=== PATIENT | male | born 1950 | race Caucasian/White ===

== ENCOUNTER → 2017-10-30 14:32 | Outpatient (CLI) | payer MEDICARE, OTHER, SELFPAY | PROVIDERS: Family Provider Internal Medicine; PCP Internal Medicine; Visit Provider Internal Medicine | DX: R19.7 Diarrhea, unspecified (principal); Z53.9 Procedure and treatment not carried out, unspecified reason ==

== ENCOUNTER → 2018-03-27 07:53 | Outpatient (CLI) | payer MEDICARE, SELFPAY | PROVIDERS: Family Provider Internal Medicine; PCP Internal Medicine; Visit Provider Internal Medicine | DX: Z53.8 Procedure and treatment not carried out for other reasons (principal) ==

== ENCOUNTER → 2018-03-27 10:20 | Outpatient (CLI) | payer MEDICARE, SELFPAY ==
[2018-03-27 12:07] LABS: Add Manual Diff / Slide Review NO; Basophils Percent Auto 0.7 % (0-2); Eosinophils Percent Auto 0.7 % (2-4); Hematocrit 39.4 % (41-53); Hemoglobin 13.4 g/dL (13.5-17.5); Lymphocytes Percent Auto 22.6 % (25-40); Mean Corpuscular HGB Conc 34.1 % (30-36); Mean Corpuscular Hemoglobin 29.7 PG (26-34); Mean Corpuscular Volume 87.1 fL (80-100); Monocytes Percent Auto 9.3 % (3-14); Neutrophils Absolute Auto 3300 /uL (3000-5900); Neutrophils Percent Auto 66.7 % (50-75); Platelet Count 204 X10^3/uL (150-400); Red Blood Cell Count 4.52 X10^6/uL (4.5-5.9); Red Cell Distribution Width 13.5 % (11.6-14.8); White Blood Cell Count 4.9 X10^3/uL (4.5-11.0)
[2018-03-27 12:21] LABS: Alanine Aminotransferase 52 IU/L (21-72); Albumin 4.6 g/dL (3.5-5.0); Albumin Globulin Ratio 1.5 (1.0-2.8); Alkaline Phosphatase 42 U/L (38-126); Amylase 62 U/L (30-110); Aspartate Aminotransferase 38 IU/L (17-59); Bilirubin Total 0.7 mg/dL (0.2-1.3); Blood Urea Nitrogen 18 mg/dL (9-20); Calcium 9.3 mg/dL (8.4-10.2); Carbon Dioxide 31 mmol/L (22-32); Chloride 98 mmol/L (98-107); Estimated Glomerular Filt Rate > 60.0 mL/min (>60); Globulin 3.1 g/dL (1.7-4.1); Glucose 152 mg/dL (80-110); HEMOLYSIS 22 (0-50); Lipase 395 U/L (23-300); Potassium 3.8 mmol/L (3.4-5.1); Sodium 140 mmol/L (137-145); Total Protein 7.7 g/dL (6.3-8.2)
[2018-03-27 14:25] LABS: Adenovirus F 40/41 Not Detected (Not Detect); Astrovirus Not Detected (Not Detect); Campylobacter Not Detected (Not Detect); Clostridium difficile toxin AB Not Detected (Not Detect); Cryptosporidium Not Detected (Not Detect); Cyclospora cayetanensis Not Detected (Not Detect); Entamoeba histolytica Not Detected (Not Detect); Enteroaggregative E.coli Not Detected (Not Detect); Enteropathogenic E.coli Not Detected (Not Detect); Enterotoxigenic E.coli It/st Not Detected (Not Detect); Giardia lamblia Not Detected (Not Detect); Norovirus GI/GII Not Detected (Not Detect); Plesiomonsa shigelloides Not Detected (Not Detect); Rotavirus A Not Detected (Not Detect); Salmonella Not Detected (Not Detect); Sapovirus Not Detected (Not Detect); Shiga-like toxin-prod E.coli Not Detected (Not Detect); Shigella/Enteroinvasive E.coli Not Detected (Not Detect); Vibrio Not Detected (Not Detect); Vibrio cholerae Not Detected (Not Detect); Yersinia enterocolitica Not Detected (Not Detect)
== END ==
PROVIDERS: PCP Internal Medicine; Visit Provider Internal Medicine
DX: R19.7 Diarrhea, unspecified (principal)
CPT/HCPCS: 36415; 80053; 82150; 83690; 85025; 87507

== ENCOUNTER → 2018-09-12 09:15 | Outpatient (CLI) | payer MEDICARE, SELFPAY ==
[2018-09-12 10:22] LABS: Alanine Aminotransferase 53 IU/L (21-72); Albumin 4.2 g/dL (3.5-5.0); Albumin Globulin Ratio 1.5 (1.0-2.8); Alkaline Phosphatase 44 U/L (38-126); Aspartate Aminotransferase 20 IU/L (17-59); BUN Creatinine Ratio 21.3 (6-22); Bilirubin Total 0.3 mg/dL (0.2-1.3); Blood Urea Nitrogen 17 mg/dL (9-20); Calcium 9.1 mg/dL (8.4-10.2); Carbon Dioxide 29 mmol/L (22-32); Chloride 101 mmol/L (98-107); Cholesterol 165 mg/dL (140-199); Estimated Glomerular Filt Rate > 60.0 mL/min (>60); Globulin 2.8 g/dL (1.7-4.1); Glucose 97 mg/dL (80-110); HDL Cholesterol 30 mg/dL (40-60); HEMOLYSIS < 15 (0-50); LDL Cholesterol Calculated 110 mg/dL (<100); Potassium 3.8 mmol/L (3.4-5.1); Sodium 139 mmol/L (137-145); Triglycerides 127 mg/dL (35-150)
[2018-09-12 10:42] LABS: Hemoglobin A1C% w Est Avg Glu 6.3 % (4.0-6.0)
[2018-09-12 10:52] LABS: Prostate Specific Antigen Scrn 0.279 ng/mL (0.1-4.0)
== END ==
PROVIDERS: PCP Internal Medicine; Visit Provider Internal Medicine
DX: I10 Essential (primary) hypertension (principal); E11.9 Type 2 diabetes mellitus without complications; E78.2 Mixed hyperlipidemia; K52.832 Lymphocytic colitis; Z12.5 Encounter for screening for malignant neoplasm of prostate
CPT/HCPCS: 36415; 80053; 80061; 83036; G0103

== ENCOUNTER → 2019-04-01 07:55 | Outpatient (CLI) | payer MEDICARE, SELFPAY ==
[2019-04-01 09:17] LABS: Add Manual Diff / Slide Review NO; Basophils Absolute Auto 0 /uL (0-100); Eosinophils Absolute Auto 100 /uL (0-450); Eosinophils Percent Auto 1.8 % (2-4); Hematocrit 41.5 % (41-53); Lymphocytes Absolute Auto 1200 /uL (1100-4500); Lymphocytes Percent Auto 30.3 % (25-40); Mean Corpuscular HGB Conc 33.8 % (30-36); Mean Corpuscular Hemoglobin 30.3 PG (26-34); Mean Corpuscular Volume 89.6 fL (80-100); Monocytes Absolute Auto 400 /uL (0-900); Monocytes Percent Auto 10.3 % (3-14); Neutrophils Absolute Auto 2200 /uL (1500-7000); Neutrophils Percent Auto 56.6 % (50-75); Platelet Count 181 X10^3/uL (150-400); Red Blood Cell Count 4.63 X10^6/uL (4.5-5.9); Red Cell Distribution Width 13.4 % (11.6-14.8); White Blood Cell Count 3.8 X10^3/uL (4.5-11.0)
[2019-04-01 12:21] LABS: Hemoglobin A1C% w Est Avg Glu 5.9 % (4.0-6.0)
[2019-04-01 14:49] LABS: BUN Creatinine Ratio 22.5 (6-22); Blood Urea Nitrogen 18 mg/dL (9-20); Calcium 9.5 mg/dL (8.4-10.2); Carbon Dioxide 30 mmol/L (22-32); Chloride 98 mmol/L (98-107); Estimated Glomerular Filt Rate > 60.0 mL/min (>60); Glucose 117 mg/dL (80-110); HEMOLYSIS < 15 (0-50); Potassium 4.3 mmol/L (3.4-5.1); Sodium 140 mmol/L (137-145)
== END ==
PROVIDERS: PCP Internal Medicine; Visit Provider Internal Medicine Cardiovascular Disease
DX: I48.0 Paroxysmal atrial fibrillation (principal)
CPT/HCPCS: 36415; 80048; 83036; 85025

== ENCOUNTER → 2019-05-08 11:07 | Outpatient (CLI) | payer MEDICARE, SELFPAY ==
--- NOTE | 2019-05-08 11:10 | DI.RAD.S_ITS ---
PROCEDURE: XR CERVICAL SPINE 4V OR 5V INDICATIONS: Chronic progressive neck pain upper extremity paresthesias TECHNIQUE: 5 views of the cervical spine acquired. COMPARISON: None. FINDINGS: Bones: No fractures or dislocations to the C7 level. There is bilateral osseous neural foraminal narrowing at C6-C7. Multilevel anterior osteophyte formation identified throughout the cervical spine. A prominent posterior disc osteophyte complex is noted at C6-C7. Soft tissues: No prevertebral soft tissue swelling. Dental amalgam noted. IMPRESSION: Moderate multilevel degenerative changes of the cervical spine, worst at C6-C7 where there is also bilateral osseous neuroforaminal narrowing. Dictated by: Shane Yousif M.D. on 05/08/2019 at 14:05 Approved by: Shane Yousif M.D. on 05/08/2019 at 14:11
== END ==
PROVIDERS: Family Provider Internal Medicine; PCP Internal Medicine; Visit Provider Physical Medicine & Rehabilitation
DX: M47.22 Other spondylosis with radiculopathy, cervical region (principal); M54.2 Cervicalgia; M48.02 Spinal stenosis, cervical region; G89.29 Other chronic pain
CPT/HCPCS: 72050

== ENCOUNTER → 2019-05-15 07:27 | Outpatient (CLI) | payer MEDICARE, SELFPAY ==
--- NOTE | 2019-05-15 07:29 | DI.MRI.S_ITS ---
PROCEDURE: MR CERVICAL SPINE WO CON INDICATIONS: Chronic progressive neck pain upper extremity paresthesias TECHNIQUE: Noncontrast sagittal T1 spin echo and T2 fast spin echo, sagittal STIR, foraminal oblique sagittal T2 fast spin echo, and axial gradient echo or T2 fast spin echo through the cervical spine. COMPARISON: None. FINDINGS: Image quality: Excellent. Alignment and Curvature: Mild straightening of normal cervical curvature. There is trace retrolisthesis of C2 on C3, trace anterolisthesis of C3 on C4, C4 on C5, C7 and T1, T1 and T2 and trace retrolisthesis of C6 on C7. Bone Marrow: Marrow demonstrates normal overall signal. Spinal Cord: Visualized spinal cord has normal size and signal. No cerebellar tonsillar herniation. Paraspinous Soft Tissues: No paravertebral masses. Prevertebral soft tissues are normal in thickness. Discs: Severe desiccation is present at C6-7, mild to moderate throughout the remainder of the cervical spine. C2-C3: No disc bulge or spinal stenosis. Minimal left foraminal narrowing with uncovertebral hypertrophy. C3-C4: Mild disc bulge without spinal stenosis. Moderate to severe right foraminal narrowing with uncovertebral hypertrophy. C4-C5: Mild disc bulge with mild spinal stenosis. Mild bilateral foraminal narrowing with uncovertebral hypertrophy. C5-C6: Mild disc bulge with mild to moderate spinal stenosis. Mild bilateral foraminal narrowing, left greater than right with uncovertebral hypertrophy. C6-C7: Mild disc bulge with moderate spinal stenosis. Moderate bilateral, left greater than right foraminal narrowing with uncovertebral hypertrophy. C7-T1: No disc bulge, spinal stenosis or foraminal narrowing. IMPRESSION: 1. Multilevel disc bulges. 2. Multilevel spinal stenosis most notable at C6-7 predominantly secondary to disc bulge. 3. Multilevel foraminal narrowing most notable at C3-4 and C6-7 secondary to uncovertebral arthropathy. Dictated by: Fiorella Mancuso M.D. on 05/15/2019 at 9:00 Approved by: Fiorella Mancuso M.D. on 05/15/2019 at 9:03
== END ==
PROVIDERS: Family Provider Nurse Practitioner Family; PCP Internal Medicine; Visit Provider Physical Medicine & Rehabilitation
DX: M50.11 Cervical disc disorder with radiculopathy, high cervical region (principal); M47.22 Other spondylosis with radiculopathy, cervical region; M48.02 Spinal stenosis, cervical region; R20.2 Paresthesia of skin; G89.29 Other chronic pain
CPT/HCPCS: 72141

== ENCOUNTER 2019-07-23 07:27 | Day surgery (SDC) | payer MEDICARE, SELFPAY ==
[2019-07-23] MEDS: PROPARACAINE 0.5% OPHTH SOL 2 DROPS EYE-OP (07:45)
[2019-07-23] MEDS: CATARACT EYE COMPOUND (10 DROPS/SYRINGE) 3 DROPS EYE-OP (07:49)
[2019-07-23 07:51] VITALS: BMI 36.1
[2019-07-23 07:56] VITALS: BP 137/80; PULSE 68; RESP 20; TEMP 36.4; O2SAT 98
--- NOTE | 2019-07-23 08:31 | PM.PREOP ---
Pre-operative Note Interval Note History & Physical reviewed/Exam performed by Physician: No Changes to H&P: No
--- NOTE | 2019-07-23 08:31 | PM.OP.1 ---
Operative Date/Time/Diagnoses Pre-op diagnosis: Nuclear cataract right eye Procedure & Clinicians Procedure: Cataract Surgery Same procedure as scheduled: Yes Surgeon: Nahid Kennedy Anesthesia Type: MAC +/- and Sedation Operative Notes Procedure in detail: Patient brought to the operating suite. Tetracaine drops placed in the right eye. Patient was prepped and draped in sterile manner. Marking instrument was used to jeremiah the vertical and horizontal meridian. Wire lid speculum was placed in the eye. Betadine drops were placed on the eye. This was irrigated. Lidocaine jelly was placed on the eye. A paracentesis port was created with a side-port blade. 0.1 mL 1% preservative free lidocaine was injected into the anterior chamber. The anterior chamber was deepened with viscoelastic. 2.6 mm keratome was used to create a temporal clear corneal incision. Cystotome and Utrata forceps were used to create continuous tear capsulorrhexis. Balanced salt solution was used to hydro dissect the nucleus. The phacoemulsification handpiece was inserted and the nucleus was removed using the stop and chop technique. The irrigation aspiration handpiece was inserted and the remaining cortex was removed. Anterior chamber was deepened with viscoelastic. An Peraza [id number] intraocular lens with a power of 18.0 was injected into the capsular bag. Irrigation aspiration handpiece was inserted and the remaining viscoelastic was removed. The lens was rotated to the 180 degree meridian. Incision was hydrated with balanced salt solution and found to be leak free with pressure with Weck-Anh sponges. 0.1 mL Vigamox injected anterior chamber. 0.3 mL Kenalog 10 mg was injected subconjunctivally. Lid speculum was removed. The patient left the operating room in excellent condition. Complications: none Post-operative Condition: stable Disposition: same day surgery
--- NOTE | 2019-07-23 08:40 | SUR.OPER ---
Supine on eye stretcher, head on extension cradle secured with tape. Arms tucked at sides with blanket. Pillow under knees.
[2019-07-23] MEDS: CHONDROIDTIN/SOD HYALURONATE 1.05 ML SYRINGE INTRAOCULA (09:01)
[2019-07-23] MEDS: LIDOCAINE JELLY 2% 5 ML 1 APPLIC TOP (09:02)
[2019-07-23] MEDS: TRIAMCINOLONE 50 MG/5 ML VIAL INJ (09:02)
[2019-07-23] MEDS: TETRACAINE 0.5% OPHTH DROPS 4 ML 2 DROPS EYE-OP (09:02)
[2019-07-23] MEDS: PHENYLEPHRINE/LIDOCAINE VIAL (OR) 0.2 ML EYE-OP (09:02)
[2019-07-23] MEDS: MOXIFLOXACIN INJ 5 MG/ML VIAL EYE-OP (09:02)
[2019-07-23] MEDS: BALANCED SALT IRRIG SOLN NO.2 500 ML, EPINEPHrine 1 MG IRR (09:03)
[2019-07-23 09:08] VITALS: BP 135/82; PULSE 67; RESP 16; TEMP 36.3; O2SAT 96
--- NOTE | 2019-07-23 09:15 | SUR.PHASEII ---
Pt declined anything PO, even when encouraged. states that he is very particular about his coffee and he plans to go to [employer] and then breakfast. A&O, skin warm and dry, surg site cdi.
== END 2019-07-23 09:21 | disposition home or self-care (01) ==
PROVIDERS: Family Provider Nurse Practitioner Family; PCP Internal Medicine; Referring Provider Ophthalmology; Visit Provider Ophthalmology
PROC: (CPT 66984; principal; 2019-07-23 08:15)
DX: H25.11 Age-related nuclear cataract, right eye (principal)
CPT/HCPCS: 66984; J0171; J2250; J3010; J3301; V2787

== ENCOUNTER 2019-08-13 06:59 | Day surgery (SDC) | payer MEDICARE, SELFPAY ==
[2019-08-13] MEDS: PROPARACAINE 0.5% OPHTH SOL 2 DROPS EYE-OP (07:57)
[2019-08-13 08:01] VITALS: BMI 36.8
[2019-08-13] MEDS: CATARACT EYE COMPOUND (10 DROPS/SYRINGE) 3 DROPS EYE-OP (08:01)
[2019-08-13 08:13] VITALS: BP 134/81; PULSE 71; RESP 12; TEMP 36.7; O2SAT 97
--- NOTE | 2019-08-13 08:38 | PM.PREOP ---
Pre-operative Note Interval Note History & Physical reviewed/Exam performed by Physician: Yes Changes to H&P: No
--- NOTE | 2019-08-13 08:38 | PM.OP.1 ---
Operative Date/Time/Diagnoses Pre-op diagnosis: Nuclear Cataract Left eye Post-op diagnosis: same Procedure & Clinicians Same procedure as scheduled: Yes Surgeon: Nahid Kennedy Anesthesia Type: MAC +/- and Sedation Operative Notes Procedure in detail: Patient brought to the operating suite. Tetracaine drops placed in the left eye. Marking instrument was used to jeremiah the vertical and horizontal meridians. Patient was prepped and draped in sterile manner. Wire lid speculum was placed in the eye. Betadine drops were placed on the eye. This was irrigated. Lidocaine jelly was placed on the eye. A paracentesis port was created with a side-port blade. 0.1 mL 1% preservative free lidocaine was injected into the anterior chamber. The anterior chamber was deepened with viscoelastic. 2.6 mm keratome was used to create a temporal clear corneal incision. Cystotome and Utrata forceps were used to create continuous tear capsulorrhexis. Balanced salt solution was used to hydro dissect the nucleus. The phacoemulsification handpiece was inserted and the nucleus was removed using the stop and chop technique. The irrigation aspiration handpiece was inserted and the remaining cortex was removed. Anterior chamber was deepened with viscoelastic. An Peraza [id number] intraocular lens with a power of 18.5 was injected into the capsular bag. Irrigation aspiration handpiece was inserted and the remaining viscoelastic was removed. The lens was rotated to the 180 degree meridian. Incision was hydrated with balanced salt solution and found to be leak free with pressure with Weck-Anh sponges. 0.1 mL Vigamox injected anterior chamber. 0.3 mL Kenalog 10 mg was injected subconjunctivally. Lid speculum was removed. The patient left the operating room in excellent condition. Complications: none Post-operative Condition: stable Disposition: same day surgery
--- NOTE | 2019-08-13 08:43 | SUR.PHASEI ---
previous note entered on wrong patient
[2019-08-13] MEDS: MOXIFLOXACIN INJ 5 MG/ML VIAL EYE-OP (08:55)
[2019-08-13] MEDS: TRIAMCINOLONE 50 MG/5 ML VIAL INJ (08:55)
[2019-08-13] MEDS: PHENYLEPHRINE/LIDOCAINE VIAL (OR) 0.2 ML EYE-OP (08:55)
[2019-08-13] MEDS: LIDOCAINE JELLY 2% 5 ML 1 APPLIC TOP (08:56)
[2019-08-13] MEDS: CHONDROIDTIN/SOD HYALURONATE 1.05 ML SYRINGE INTRAOCULA (08:56)
[2019-08-13] MEDS: BALANCED SALT IRRIG SOLN NO.2 500 ML, EPINEPHrine 1 MG IRR (08:56)
[2019-08-13] MEDS: TETRACAINE 0.5% OPHTH DROPS 4 ML 2 DROPS EYE-OP (08:56)
[2019-08-13 09:10] VITALS: BP 123/75; PULSE 69; RESP 16; TEMP 36.2; O2SAT 94
== END 2019-08-13 09:21 | disposition home or self-care (01) ==
PROVIDERS: Family Provider Nurse Practitioner Family; PCP Internal Medicine; Referring Provider Ophthalmology; Visit Provider Ophthalmology
PROC: (CPT 66984; principal; 2019-08-13 08:45)
DX: H25.12 Age-related nuclear cataract, left eye (principal)
CPT/HCPCS: 66984; J0171; J2250; J2704; J3010; J3301; V2787

== ENCOUNTER → 2020-12-25 10:08 | Outpatient (CLI) | payer MEDICARE, SELFPAY ==
[2020-12-25 11:12] LABS: COVID19 -Nasal RAPID Negative (Negative)
== END ==
PROVIDERS: Family Provider Nurse Practitioner Family; PCP Internal Medicine; Visit Provider Physician Assistant
DX: Z20.822 Contact with and (suspected) exposure to COVID-19 (principal); J02.9 Acute pharyngitis, unspecified
CPT/HCPCS: 87070; 87635

== ENCOUNTER → 2021-01-14 14:08 | Outpatient (CLI) | payer MEDICARE, SELFPAY ==
[2021-01-14 15:37] LABS: Add Manual Diff / Slide Review NO; Basophils Absolute Auto 0 /uL (0-100); Basophils Percent Auto 0.8 % (0-2); Eosinophils Absolute Auto 100 /uL (0-450); Eosinophils Percent Auto 1.2 % (2-4); Hematocrit 43.5 % (41-53); Hemoglobin 14.4 g/dL (13.5-17.5); Lymphocytes Absolute Auto 1200 /uL (1100-4500); Lymphocytes Percent Auto 21.6 % (25-40); Mean Corpuscular Hemoglobin 29.8 PG (26-34); Mean Corpuscular Volume 90.4 fL (80-100); Monocytes Absolute Auto 600 /uL (0-900); Monocytes Percent Auto 10.4 % (3-14); Neutrophils Absolute Auto 3700 /uL (1500-7000); Platelet Count 176 X10^3/uL (150-400); Red Blood Cell Count 4.82 X10^6/uL (4.5-5.9); Red Cell Distribution Width 14.2 % (11.6-14.8); White Blood Cell Count 5.7 X10^3/uL (4.5-11.0)
[2021-01-14 15:53] LABS: Alanine Aminotransferase 32 IU/L (<50); Albumin 4.5 g/dL (3.5-5.0); Albumin Globulin Ratio 1.5 (1.0-2.8); Alkaline Phosphatase 50 U/L (38-126); Aspartate Aminotransferase 32 IU/L (17-59); BUN Creatinine Ratio 17.8 (6-22); Bilirubin Total 0.5 mg/dL (0.2-1.3); Blood Urea Nitrogen 16 mg/dL (9-20); Calcium 9.2 mg/dL (8.4-10.2); Carbon Dioxide 25 mmol/L (22-32); Chloride 103 mmol/L (98-107); Estimated Glomerular Filt Rate > 60.0 mL/min (>60); Glucose 130 mg/dL (80-110); HEMOLYSIS 16 (0-50); Potassium 3.4 mmol/L (3.4-5.1); Sodium 137 mmol/L (137-145); Total Protein 7.5 g/dL (6.3-8.2)
[2021-01-14 16:24] LABS: Thyroid Stimulating Hormone 0.548 uIU/mL (0.47-4.68)
[2021-01-14 16:29] LABS: Hemoglobin A1C% w Est Avg Glu 7.3 % (4.0-6.0)
[2021-01-14 19:42] LABS: Clostridium Difficile Tox PCR Negative for C. diff (Negative)
== END ==
PROVIDERS: Family Provider Nurse Practitioner Family; PCP Internal Medicine; Referring Provider Internal Medicine; Visit Provider Internal Medicine
DX: E11.9 Type 2 diabetes mellitus without complications (principal); I10 Essential (primary) hypertension; R19.7 Diarrhea, unspecified
CPT/HCPCS: 36415; 80053; 83036; 84439; 84443; 85025; 87045; 87177; 87493; 87899

== ENCOUNTER → 2021-08-19 08:36 | Outpatient (CLI) | payer MEDICARE, SELFPAY ==
[2021-08-19 10:03] LABS: Add Manual Diff / Slide Review NO; Basophils Absolute Auto 100 /uL (0-100); Basophils Percent Auto 1.2 % (0-2); Eosinophils Absolute Auto 100 /uL (0-450); Eosinophils Percent Auto 2.2 % (2-4); Hematocrit 43.6 % (41-53); Hemoglobin 14.9 g/dL (13.5-17.5); Lymphocytes Absolute Auto 1400 /uL (1100-4500); Lymphocytes Percent Auto 28.3 % (25-40); Mean Corpuscular HGB Conc 34.2 % (30-36); Mean Corpuscular Hemoglobin 30.3 PG (26-34); Mean Corpuscular Volume 88.5 fL (80-100); Monocytes Absolute Auto 400 /uL (0-900); Monocytes Percent Auto 8.9 % (3-14); Neutrophils Absolute Auto 2900 /uL (1500-7000); Neutrophils Percent Auto 59.4 % (50-75); Platelet Count 169 X10^3/uL (150-400); Red Blood Cell Count 4.93 X10^6/uL (4.5-5.9); Red Cell Distribution Width 13.7 % (11.6-14.8); White Blood Cell Count 4.9 X10^3/uL (4.5-11.0)
[2021-08-19 10:13] LABS: Hemoglobin A1C% w Est Avg Glu 9.5 % (4.0-6.0)
[2021-08-19 10:36] LABS: Alanine Aminotransferase 41 IU/L (<50); Albumin 4.5 g/dL (3.5-5.0); Albumin Globulin Ratio 1.6 (1.0-2.8); Alkaline Phosphatase 57 U/L (38-126); Aspartate Aminotransferase 36 IU/L (17-59); BUN Creatinine Ratio 21.4 (6-22); Bilirubin Total 0.8 mg/dL (0.2-1.3); Blood Urea Nitrogen 15 mg/dL (9-20); Calcium 9.2 mg/dL (8.4-10.2); Carbon Dioxide 29 mmol/L (22-32); Chloride 98 mmol/L (98-107); Estimated Glomerular Filt Rate > 60.0 mL/min (>60); Globulin 2.9 g/dL (1.7-4.1); Glucose 216 mg/dL (80-110); HEMOLYSIS < 15 (0-50); Sodium 135 mmol/L (137-145); Total Protein 7.4 g/dL (6.3-8.2)
== END ==
PROVIDERS: Family Provider Nurse Practitioner Family; PCP Internal Medicine; Referring Provider Internal Medicine; Visit Provider Internal Medicine
DX: E11.9 Type 2 diabetes mellitus without complications (principal); I10 Essential (primary) hypertension; I48.0 Paroxysmal atrial fibrillation; Z79.01 Long term (current) use of anticoagulants
CPT/HCPCS: 36415; 80053; 83036; 85025

== ENCOUNTER → 2021-11-23 07:07 | Outpatient (CLI) | payer MEDICARE, SELFPAY ==
[2021-11-23 08:08] LABS: Hemoglobin A1C% w Est Avg Glu 8.2 % (4.0-6.0)
[2021-11-23 08:59] LABS: BUN Creatinine Ratio 19.5 (6-22); Blood Urea Nitrogen 16 mg/dL (9-20); Calcium 8.9 mg/dL (8.4-10.2); Carbon Dioxide 28 mmol/L (22-32); Chloride 100 mmol/L (98-107); Estimated Glomerular Filt Rate > 60 mL/min (>60); Glucose 142 mg/dL (80-110); HEMOLYSIS < 15 (0-50); Potassium 3.8 mmol/L (3.4-5.1); Sodium 137 mmol/L (137-145)
== END ==
PROVIDERS: Family Provider Nurse Practitioner Family; PCP Internal Medicine; Referring Provider Internal Medicine; Visit Provider Internal Medicine
DX: E11.65 Type 2 diabetes mellitus with hyperglycemia (principal)
CPT/HCPCS: 36415; 80048; 83036

== ENCOUNTER 2022-03-28 15:44 | Emergency (ER) | payer MEDICARE, SELFPAY ==
[2022-03-28 16:00] VITALS: BP 196/107; PULSE 70; RESP 17; TEMP 36.9; O2SAT 98; BMI 36.9
--- NOTE | 2022-03-28 16:08 | DI.RAD.S_ITS ---
PROCEDURE: XR CHEST 1V INDICATIONS: chest pain TECHNIQUE: One view of the chest was acquired. COMPARISON: [facility], , CHEST 2 VIEW, 09/19/2017, 13:44. FINDINGS: Surgical changes and devices: None. Lungs and pleura: There is blunting the right costophrenic angle with obscuration right hemidiaphragm. Left lung and pleural space clear Mediastinum: Mediastinal contours appear normal. Heart size is normal. Bones and chest wall: No suspicious bony lesions. Overlying soft tissues appear unremarkable. IMPRESSION: Right pleural effusion with atelectasis and or infiltrate Approved by: Michael Shannon M.D. on 03/28/2022 at 16:32
[2022-03-28 16:30] VITALS: BP 193/106; PULSE 70; RESP 16; O2SAT 97
[2022-03-28 16:47] LABS: Add Manual Diff / Slide Review NO; Basophils Absolute Auto 100 /uL (0-100); Basophils Percent Auto 1.1 % (0-2); Eosinophils Absolute Auto 100 /uL (0-450); Eosinophils Percent Auto 1.8 % (2-4); Hematocrit 43.3 % (41-53); Hemoglobin 14.5 g/dL (13.5-17.5); Lymphocytes Absolute Auto 1500 /uL (1100-4500); Mean Corpuscular HGB Conc 33.6 % (30-36); Mean Corpuscular Volume 89.4 fL (80-100); Monocytes Absolute Auto 600 /uL (0-900); Monocytes Percent Auto 8.4 % (3-14); Neutrophils Absolute Auto 4600 /uL (1500-7000); Neutrophils Percent Auto 66.7 % (50-75); Platelet Count 191 X10^3/uL (150-400); Red Blood Cell Count 4.84 X10^6/uL (4.5-5.9); Red Cell Distribution Width 13.7 % (11.6-14.8)
[2022-03-28 17:00] VITALS: BP 191/99; PULSE 74; O2SAT 97
[2022-03-28 17:01] LABS: Alanine Aminotransferase 27 IU/L (<50); Albumin 4.4 g/dL (3.5-5.0); Albumin Globulin Ratio 1.3 (1.0-2.8); Alkaline Phosphatase 53 U/L (38-126); Aspartate Aminotransferase 33 IU/L (17-59); BUN Creatinine Ratio 24.7 (6-22); Bilirubin Total 0.8 mg/dL (0.2-1.3); Blood Urea Nitrogen 18 mg/dL (9-20); Calcium 9.3 mg/dL (8.4-10.2); Carbon Dioxide 30 mmol/L (22-32); Chloride 98 mmol/L (98-107); Creatine Kinase 59 U/L (55-170); Estimated Glomerular Filt Rate > 60 mL/min (>60); Globulin 3.3 g/dL (1.7-4.1); Glucose 119 mg/dL (80-110); HEMOLYSIS 26 (0-50); Lipase 86 U/L (23-300); Magnesium 2.1 mg/dL (1.6-2.3); Potassium 3.6 mmol/L (3.4-5.1); Sodium 137 mmol/L (137-145); Total Protein 7.7 g/dL (6.3-8.2)
[2022-03-28 17:10] LABS: Troponin I < 0.012 ng/mL (0.01-0.034)
[2022-03-28 17:15] VITALS: BP 216/102; PULSE 74; O2SAT 96
[2022-03-28 17:36] VITALS: BP 189/122; PULSE 72; O2SAT 96
[2022-03-28 17:58] VITALS: BP 187/87; PULSE 70; RESP 16; O2SAT 97
--- NOTE | 2022-03-28 19:38 | ED.CHESTPAIN ---
HPI - Chest Pain <Alex Jason PA-C - Last Filed: 03/28/22 20:36> General Chief Complaint: Chest Pain Stated Complaint: CHEST PAIN NECK PAIN HEADACHE Time Seen by Provider: 03/28/22 17:19 Source: patient Mode of arrival: Ambulatory History of Present Illness HPI narrative: 71-year-old male with past medical history AFib on apixaban, diabetes presents to the ED with 1 day of substernal chest pain. Patient states that his pain started a few hours prior to arrival, describes the pain as tightness in the substernal region. Pain does not radiate anywhere. Patient states that his pain resolved prior to coming into the ED. Patient denies fever, chills, shortness of breath, nausea, vomiting, abdominal pain, lightheadedness, dizziness, syncope. Patient does endorse a few days of postnasal drip. Related Data Home Medications Medication Instructions Recorded Confirmed Resmed Airsense 10 CPAP #1 ea 10/11/18 03/21/22 apixaban 5 mg tablet 5 mg PO BID #20 tabs 01/15/19 03/28/22 nebivolol 10 mg tablet 10 mg PO DAILY 01/28/20 03/28/22 Previous Rx's Medication Instructions Recorded acyclovir 400 mg tablet 400 mg PO 5XD #35 tabs 11/21/17 Verio Test Strips #100 ea 07/02/18 lancets 30 gauge (OneTouch Delica #100 ea 07/02/18 Lancets) hydrocortisone acetate 25 mg 25 mg MI Q12H PRN hemorrhoids #30 05/14/19 rectal suppository ea glipizide 5 mg tablet 5 mg PO BID #60 tabs 09/10/21 alprazolam 0.5 mg tablet 0.25 - 0.5 mg PO TID PRN anxiety 03/01/22 #120 tabs losartan 100 mg tablet 100 mg PO BEDTIME #90 tabs 03/11/22 hydrocodone 5 mg-acetaminophen 325 1 - 3 tab PO Q4-6H PRN pain #90 03/25/22 mg tablet tabs azithromycin 250 mg tablet See Rx Instructions PO .COMPLEX #6 03/28/22 (Zithromax Z-Ernesto) tabs azithromycin 250 mg tablet See Rx Instructions PO .COMPLEX #6 03/28/22 (Zithromax Z-Ernesto) tabs Allergies Allergy/AdvReac Type Severity Reaction Status Date / Time terazosin [TERAZOSIN] Allergy Severe DIZZINESS,C Verified 03/28/22 16:10 HESTPAIN grass pollen Allergy Intermediate Runny Verified 03/28/22 16:10 Nose/Stuffiness aspirin Allergy Mild EYES WATER Verified 03/28/22 16:10 codeine Allergy Mild MOOD CHANGE Verified 03/28/22 16:10 metformin [METFORMIN] AdvReac Intermediate DIARRHEA Verified 03/28/22 16:10 Mrogdzt-[id number]-CkE Reductase AdvReac Intermediate severe Verified 03/28/22 16:10 Inhibitor muscle [Ifxcglx-Myw-Qdl Reductase joint pain Inhibitor] Review of Systems <Alex Jason PA-C - Last Filed: 03/28/22 20:36> Review of Systems ROS Unobtainable: All systems reviewed & are unremarkable except as noted in HPI and below Constitutional Constitutional: Denies chills, Denies fatigue, Denies fever(s), Denies frequent falls, Denies lethargy and Denies weakness Eyes Eyes: Denies change in vision, Denies eye discharge, Denies irritation and Denies loss of vision ENT Ears, Nose, Mouth, and Throat: Denies change in voice, Denies dizziness, Denies neck pain, Denies sore throat and Denies throat swelling Comments: Postnasal drip Cardiovascular Cardiovascular: Reports chest pain, Denies irregular heart rhythm, Denies lightheadedness, Denies palpitations, Denies dyspnea, Denies dyspnea on exertion and Denies orthopnea Respiratory Respiratory: Denies cough, Denies dyspnea, Denies dyspnea on exertion and Denies wheezing Gastrointestinal Gastrointestinal: Denies abdominal pain, Denies change in bowel habits, Denies diarrhea, Denies nausea and Denies vomiting Genitourinary Genitourinary: Denies hematuria, Denies flank pain, Denies urinary incontinence and Denies urinary urgency Musculoskeletal Musculoskeletal: Denies back pain, Denies muscle weakness, Denies neck pain, Denies numbness and Denies tingling Integumentary/Breasts Skin/Breast: Denies pruritus, Denies erythema, Denies rash and Denies wounds Neurologic Neurologic: Denies behavioral changes, Denies confusion, Denies dizziness, Denies frequent falls, Denies loss of vision, Denies numbness, Denies tingling and Denies weakness Psychiatric Psychiatric: Denies anxiety, Denies behavioral changes, Denies confusion, Denies depression, Denies homicidal ideation and Denies suicidal ideation Endocrine Endocrine: Denies fatigue, Denies flushing and Denies palpitations Hematologic/Lymphatic Hematologic/Lymphatic: Denies easy bruising Allergic/Immunologic Allergic/Immunologic: Denies urticaria, Denies throat swelling and Denies wheezing Patient History <Alex Jason PA-C - Last Filed: 03/28/22 20:36> Medical History BPH w urinary obs/LUTS Cervical radiculopathy Cervical spondylosis Current use of long distance operator anticoagulation Diabetes type 2, uncontrolled Essential hypertension Foraminal stenosis of cervical region GERD (gastroesophageal reflux disease) Herniated nucleus pulposus, C6-7 left Idiopathic peripheral neuropathy (03/20/12) Lymphocytic colitis (~2018) Mixed hyperlipidemia Obesity (BMI 30-39.9) Obstructive sleep apnea of adult (~2006) Peripheral edema Primary osteoarthritis of both hands (12/29/16) Type 2 diabetes mellitus without complication Social History marital status: details: july Carter, lives [place] [facility] [place] number of children: 0 household members: spouse lives independently: Yes caregiver/support person: No housing: house pets and animals: Yes (goats, chickens, horses, dogs) education level: college occupational status: other (Retired) current occupational exposures/hazards: No Previous occupational history: [employer] for [employer] jesus/sikhism: None travel history: recent ([place]) leisure activities: reading and other ([place]) Smoking Status: Former smoker Tobacco: How many years used: 18 Smokeless tobacco user: other (Cigarettes) quit status: quit date established (1984) 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) alcohol intake: former substance use type: unknown (Used from -) Smoking Status: Former smoker alcohol intake frequency: other Substance Use Type: does not use Exam <Alex Jason PA-C - Last Filed: 03/28/22 20:36> Narrative Exam Narrative: Const General:?cooperative, healthy appearing and comfortable [facility] Head:?normal to inspection Ears:?hearing grossly normal bilaterally Nose:?external nose normal Face and sinus:?normal facial exam and sinuses nontender Mouth:?oral mucosae normal Throat:?posterior oropharynx normal Eyes General:?appearance normal, both eyes and all related structures Neck Neck:?normal visual inspection and no lymphadenopathy noted Resp Effort & Inspection:?normal respiratory effort Auscultation:?clear to auscultation bilaterally Cardio Rate:?regular rate Rhythm:?regular rhythm Neuro General:?patient alert, patient awake and patient oriented x3 Initial Vital Signs Initial Vital Signs: Vital Signs Temperature 98.5 F 03/28/22 16:00 Pulse Rate 70 03/28/22 16:00 Respiratory Rate 17 03/28/22 16:00 Blood Pressure 196/107 H 03/28/22 16:00 Pulse Oximetry 98 03/28/22 16:00 Oxygen Delivery Method 03/28/22 16:00 <DO Rekha Morin Last Filed: 03/31/22 07:32> Initial Vital Signs Initial Vital Signs: Vital Signs Temperature 98.5 F 03/28/22 16:00 Pulse Rate 70 03/28/22 16:00 Respiratory Rate 17 03/28/22 16:00 Blood Pressure 196/107 H 03/28/22 16:00 Pulse Oximetry 98 03/28/22 16:00 Oxygen Delivery Method 03/28/22 16:00 Course <Alex Jason PA-C - Last Filed: 03/28/22 20:36> Orders Ordered: Discontinued Medications Aspirin (Aspirin 81 Mg Chew Tab) 324 mg PO NOW ONE Stop: 03/28/22 16:09 Last Admin: 03/28/22 16:53 Dose: Not Given Documented By: RL Vital Signs Vital signs: Vital Signs - 8 hr 03/28/22 16:00 03/28/22 16:30 03/28/22 17:00 Temperature 98.5 F Pulse Rate 70 70 74 Respiratory Rate 17 16 Blood Pressure 196/107 H 193/106 H 191/99 H Pulse Oximetry 98 97 97 Oxygen Delivery Method Room Air Room Air Room Air 03/28/22 17:15 03/28/22 17:36 03/28/22 17:58 Temperature Pulse Rate 74 72 70 Respiratory Rate 16 Blood Pressure 216/102 H 189/122 H 187/87 H Pulse Oximetry 96 96 97 Oxygen Delivery Method Room Air Room Air Room Air <DO Rekha Morin Last Filed: 03/31/22 07:32> Orders Ordered: Discontinued Medications Aspirin (Aspirin 81 Mg Chew Tab) 324 mg PO NOW ONE Stop: 03/28/22 16:09 Last Admin: 03/28/22 16:53 Dose: Not Given Documented By: RODNEY Vital Signs Vital signs: Vital Signs - 8 hr 03/28/22 16:00 03/28/22 16:30 03/28/22 17:00 Temperature 98.5 F Pulse Rate 70 70 74 Respiratory Rate 17 16 Blood Pressure 196/107 H 193/106 H 191/99 H Pulse Oximetry 98 97 97 Oxygen Delivery Method Room Air Room Air Room Air 03/28/22 17:15 03/28/22 17:36 03/28/22 17:58 Temperature Pulse Rate 74 72 70 Respiratory Rate 16 Blood Pressure 216/102 H 189/122 H 187/87 H Pulse Oximetry 96 96 97 Oxygen Delivery Method Room Air Room Air Room Air MDM - Chest Pain <Alex Jason PA-C - Last Filed: 03/28/22 20:36> Lab Data Result diagrams: 03/28/22 16:38 03/28/22 16:38 Labs: Lab Results 03/28/22 03/28/22 03/28/22 Range/Units 16:38 16:38 19:25 WBC 7.0 (4.5-11.0) X10^3/uL RBC 4.84 (4.5-5.9) X10^6/uL Hgb 14.5 (13.5-17.5) g/dL Hct 43.3 (41-53) % MCV 89.4 (80-100) fL MCH 30.0 (26-34) PG MCHC 33.6 (30-36) % RDW 13.7 (11.6-14.8) % Plt Count 191 (150-400) X10^3/uL Neut % (Auto) 66.7 (50-75) % Lymph % (Auto) 22.0 L (25-40) % Hardee % (Auto) 8.4 (3-14) % Eos % (Auto) 1.8 L (2-4) % Baso % (Auto) 1.1 (0-2) % Neut # (Auto) 4600 (1631-5956) /uL Lymph # (Auto) 1500 (8125-9951) /uL Hardee # (Auto) 600 (0-900) /uL Eos # (Auto) 100 (0-450) /uL Baso # (Auto) 100 (0-100) /uL Sodium 137 (137-145) mmol/L Potassium 3.6 (3.4-5.1) mmol/L Chloride 98 (98-107) mmol/L Carbon Dioxide 30 (22-32) mmol/L BUN 18 (9-20) mg/dL Creatinine 0.73 (0.66-1.25) mg/dL Estimated GFR > 60 (>60) mL/min BUN/Creatinine Ratio 24.7 H (6-22) Glucose 119 H (80-110) mg/dL Calcium 9.3 (8.4-10.2) mg/dL Magnesium 2.1 (1.6-2.3) mg/dL Total Bilirubin 0.8 (0.2-1.3) mg/dL AST 33 (17-59) IU/L ALT 27 (<50) IU/L Alkaline Phosphatase 53 (38-126) U/L Total Creatine Kinase 59 64 (55-170) U/L CK-MB (CK-2) TNP TNP CK-MB (CK-2) Rel Index TNP TNP Troponin I < 0.012 < 0.012 (0.01-0.034) ng/mL Total Protein 7.7 (6.3-8.2) g/dL Albumin 4.4 (3.5-5.0) g/dL Globulin 3.3 (1.7-4.1) g/dL Albumin/Globulin Ratio 1.3 (1.0-2.8) Lipase 86 (23-300) U/L Imaging Data Chest x-ray: Radiologist's Impression: PROCEDURE:? XR CHEST 1V ? INDICATIONS:? chest pain ? TECHNIQUE:? One view of the chest was acquired.? ? COMPARISON:? [facility], , CHEST 2 VIEW, 09/19/2017, 13:44. ? FINDINGS:? ? Surgical changes and devices:? None.? ? Lungs and pleura:? There is blunting the right costophrenic angle with obscuration right hemidiaphragm.? Left lung and pleural space clear ? Mediastinum:? Mediastinal contours appear normal.? Heart size is normal.? ? Bones and chest wall:? No suspicious bony lesions.? Overlying soft tissues appear unremarkable.? ? IMPRESSION:? ? Right pleural effusion with atelectasis and or infiltrate ? ? ? Approved by: Michael Shannon M.D. on 03/28/2022 at 16:32? [facility] Narrative Medical decision making narrative: 71-year-old male with past medical history AFib on apixaban, diabetes presents to the ED with 1 day of substernal chest pain. Concern for ACS versus pneumonia versus GERD versus other. Will obtain labs, chest x-ray, EKG, troponin. Chest x-ray shows right pleural effusion with atelectasis and/or infiltrate. Labs unremarkable. Will repeat troponin, EKG, reassess. Repeat troponin, EKG unremarkable. Will treat patient for pneumonia. Patient left with his IV in his arm, since he was in a hurry to catch his [place]. Called patient and spoke with him on the phone, he agreed to take the IV out by himself or have a nurse friend take it out for him tonight. Also let patient know that I have called in antibiotics to his pharmacy. ED return precautions were also discussed. Patient verbalized understanding. <Krishna Ayala, - Last Filed: 03/31/22 07:32> Lab Data Labs: Lab Results 03/28/22 03/28/22 03/28/22 Range/Units 16:38 16:38 19:25 WBC 7.0 (4.5-11.0) X10^3/uL RBC 4.84 (4.5-5.9) X10^6/uL Hgb 14.5 (13.5-17.5) g/dL Hct 43.3 (41-53) % MCV 89.4 (80-100) fL MCH 30.0 (26-34) PG MCHC 33.6 (30-36) % RDW 13.7 (11.6-14.8) % Plt Count 191 (150-400) X10^3/uL Neut % (Auto) 66.7 (50-75) % Lymph % (Auto) 22.0 L (25-40) % [place] % (Auto) 8.4 (3-14) % Eos % (Auto) 1.8 L (2-4) % Baso % (Auto) 1.1 (0-2) % Neut # (Auto) 4600 (1663-1639) /uL Lymph # (Auto) 1500 (1912-1925) /uL [place]ee # (Auto) 600 (0-900) /uL Eos # (Auto) 100 (0-450) /uL Baso # (Auto) 100 (0-100) /uL Sodium 137 (137-145) mmol/L Potassium 3.6 (3.4-5.1) mmol/L Chloride 98 (98-107) mmol/L Carbon Dioxide 30 (22-32) mmol/L BUN 18 (9-20) mg/dL Creatinine 0.73 (0.66-1.25) mg/dL Estimated GFR > 60 (>60) mL/min BUN/Creatinine Ratio 24.7 H (6-22) Glucose 119 H (80-110) mg/dL Calcium 9.3 (8.4-10.2) mg/dL Magnesium 2.1 (1.6-2.3) mg/dL Total Bilirubin 0.8 (0.2-1.3) mg/dL AST 33 (17-59) IU/L ALT 27 (<50) IU/L Alkaline Phosphatase 53 (38-126) U/L Total Creatine Kinase 59 64 (55-170) U/L CK-MB (CK-2) TNP TNP CK-MB (CK-2) Rel Index TNP TNP Troponin I < 0.012 < 0.012 (0.01-0.034) ng/mL Total Protein 7.7 (6.3-8.2) g/dL Albumin 4.4 (3.5-5.0) g/dL Globulin 3.3 (1.7-4.1) g/dL Albumin/Globulin Ratio 1.3 (1.0-2.8) Lipase 86 (23-300) U/L Discharge Plan Departure Patient Disposition: Home Clinical Impression: Pneumonia Instructions: DI for Pneumonia -- Adult, DI for Chest Pain Activity Restrictions/Additional Instructions: You were evaluated in the ED today for chest pain. Your EKG, troponin, labs were all normal. Your chest x-ray shows some pleural effusion on the right lower lung, which could be pneumonia. You are being prescribed azithromycin for the pneumonia. Please complete the full course of antibiotics. Please return to the ED if you have worsening symptoms, chest pain, shortness of breath. Please follow-up with your PCP in 3-4 days. Prescriptions: New azithromycin [Zithromax Z-Ernesto] 250 mg tablet See Rx Instructions .ROUTE .COMPLEX Qty: 6 0RF Rx Instructions: For 250 mg dose pack: take 500 mg today (day 1), then 250 mg for 4 days (days 2-5) azithromycin [Zithromax Z-Ernesto] 250 mg tablet See Rx Instructions .ROUTE .COMPLEX Qty: 6 0RF Rx Instructions: For 250 mg dose pack: take 500 mg today (day 1), then 250 mg for 4 days (days 2-5) No Action acyclovir 400 mg tablet 400 mg PO 5XD Qty: 35 6RF Rx Instructions: take one tablet by mouth five times a day. (DME) lancets [OneTouch Delica Lancets] 30 gauge misc See Dose Instructions .ROUTE .MEDSUPPLY Qty: 100 11RF Dose Instruction: As directed Rx Instructions: As directed (DME) Verio Test Strips Qty: 100 11RF Dose Instruction: As directed Rx Instructions: Use for glucose monitoring daily. hydrocortisone acetate 25 mg suppository 25 mg MI Q12H PRN (Reason: hemorrhoids) Qty: 30 3RF Rx Instructions: 1 Suppository rectually every 12 hrs PRN alprazolam 0.5 mg tablet 0.25 - 0.5 mg PO TID PRN (Reason: anxiety) Qty: 120 0RF losartan 100 mg tablet 100 mg PO BEDTIME Qty: 90 0RF hydrocodone-acetaminophen 5-325 mg tablet 1 - 3 tab PO Q4-6H PRN (Reason: pain) Qty: 90 0RF Rx Instructions: Exempt Eliquis 5 mg tablet 5 mg PO BID Qty: 20 Bystolic 10 mg tablet 10 mg PO DAILY glipizide 5 mg tablet 5 mg PO BID Qty: 60 4RF (DME) Resmed Airsense 10 CPAP Qty: 1 Dose Instruction: As directed Label Comments: Pressure: 7-20 cmH2O DME: [facility] Rx Instructions: As directed Referrals: Saeed Short MD [Primary Care Provider] - Visit Report Forms: Patient Portal/API <Krishna Ayala DO - Last Filed: 03/31/22 07:32> Cosign ED Attending Cosignature Attestation: Dr Ayala Co-Sign Statement: I was available for consultation during this patient's emergency department visit. This chart is signed by myself for administrative purposes only. I did not have direct contact with this patient during this visit. They were seen independently by the APC.
[2022-03-28 19:53] LABS: Creatine Kinase 64 U/L (55-170)
[2022-03-28 20:06] LABS: Troponin I < 0.012 ng/mL (0.01-0.034)
--- NOTE | 2022-03-28 20:31 | PC.NURSE ---
Went to notify patient that he was going to be discharged and wanted to clarify where to send his prescriptions but found patient was not present in the room and all his belongings were gone. Notified provider that patient left with IV in place as could not find staff that had removed. Patient called the ED to notify us that he had left because he had a ferry to catch. Provider to take phone call.
== END 2022-03-28 20:00 | disposition home or self-care (01) ==
PROVIDERS: Emergency Medicine; Emergency Provider Student in an Organized Health Care Education/Training Program; Family Provider Nurse Practitioner Family; PCP Internal Medicine
DX: J18.9 Pneumonia, unspecified organism (principal); I48.91 Unspecified atrial fibrillation; Z79.01 Long term (current) use of anticoagulants
CPT/HCPCS: 36415; 71045; 80053; 82550; 83690; 83735; 84484; 85025; 93005; 93010; 99284

== ENCOUNTER → 2022-04-19 14:06 | Outpatient (CLI) | payer MEDICARE, SELFPAY ==
--- NOTE | 2022-04-19 14:08 | DI.RAD.S_ITS ---
PROCEDURE: XR CHEST 2V INDICATIONS: pneumonia TECHNIQUE: 2 views of the chest were acquired. COMPARISON: [facility], CR, XR CHEST 1V, 03/28/2022, 16:21. FINDINGS: Surgical changes and devices: None. Lungs and pleura: There is mild pulmonary vascular congestion. Increased reticular markings in bilateral lung guzman are noted suggestive of mild pulmonary edema. No definite focal infiltrate. No pleural effusions or pneumothorax. Mediastinum: Mediastinal contours are normal. Heart size is enlarged. Bones and chest wall: No suspicious bony abnormalities. Soft tissues appear unremarkable. IMPRESSION: Cardiomegaly and mild congestion. Suggestion of mild pulmonary edema versus pneumonitis. No definite focal infiltrate. No pleural effusion or pneumothorax. Dictated by: Olayinka Pisano M.D. on 04/19/2022 at 14:52 Approved by: Olayinka Pisano M.D. on 04/19/2022 at 14:53
== END ==
PROVIDERS: Family Provider Nurse Practitioner Family; PCP Internal Medicine; Referring Provider Internal Medicine; Visit Provider Internal Medicine
DX: J18.9 Pneumonia, unspecified organism (principal); I51.7 Cardiomegaly; R09.89 Other specified symptoms and signs involving the circulatory and respiratory systems
CPT/HCPCS: 71046

== ENCOUNTER → 2022-06-16 08:00 | Outpatient (CLI) | payer MEDICARE, SELFPAY ==
[2022-06-16 09:23] LABS: Hemoglobin A1C% w Est Avg Glu 7.7 % (4.0-6.0)
[2022-06-16 09:30] LABS: Blood Urea Nitrogen 14 mg/dL (9-20); Calcium 9.1 mg/dL (8.4-10.2); Carbon Dioxide 29 mmol/L (22-32); Chloride 98 mmol/L (98-107); Estimated Glomerular Filt Rate > 60 mL/min (>60); Glucose 150 mg/dL (80-110); HEMOLYSIS < 15 (0-50); Potassium 3.7 mmol/L (3.4-5.1); Sodium 137 mmol/L (137-145)
== END ==
PROVIDERS: Family Provider Nurse Practitioner Family; PCP Internal Medicine; Referring Provider Internal Medicine; Visit Provider Internal Medicine
DX: E11.9 Type 2 diabetes mellitus without complications (principal); E11.65 Type 2 diabetes mellitus with hyperglycemia; I10 Essential (primary) hypertension
CPT/HCPCS: 36415; 80048; 83036

== ENCOUNTER → 2022-07-14 16:50 | Outpatient (CLI) | payer MEDICARE, SELFPAY ==
--- NOTE | 2022-07-14 16:53 | DI.RAD.S_ITS ---
PROCEDURE: XR CHEST 2V INDICATIONS: dyspnea TECHNIQUE: 2 views of the chest were acquired. COMPARISON: [facility], , XR CHEST 2V, 04/19/2022, 14:24. FINDINGS: Surgical changes and devices: None. Lungs and pleura: There is mild prominence of the central pulmonary vasculature and interstitial markings. No focal airspace consolidation. No pleural effusion or pneumothorax. Mediastinum: Mediastinal contours are normal. Heart size is mildly enlarged and stable. Bones and chest wall: No suspicious bony abnormalities. Soft tissues appear unremarkable. IMPRESSION: Stable mild cardiomegaly. Mild prominence of the pulmonary vasculature and interstitial markings may indicate mild pulmonary edema. Approved by: Salas Barnard M.D. on 07/15/2022 at 10:43
== END ==
PROVIDERS: Family Provider Nurse Practitioner Family; PCP Internal Medicine; Referring Provider Internal Medicine; Visit Provider Internal Medicine
DX: I51.7 Cardiomegaly (principal); R06.00 Dyspnea, unspecified
CPT/HCPCS: 71046

== ENCOUNTER → 2022-09-09 08:31 | Outpatient (CLI) | payer MEDICARE, SELFPAY ==
[2022-09-09 10:38] LABS: Blood Urea Nitrogen 15 mg/dL (9-20); Calcium 9.3 mg/dL (8.4-10.2); Carbon Dioxide 32 mmol/L (22-32); Chloride 96 mmol/L (98-107); Estimated Glomerular Filt Rate > 60 mL/min (>60); Glucose 137 mg/dL (80-110); HEMOLYSIS < 15 (0-50); Sodium 137 mmol/L (137-145)
[2022-09-09 11:00] LABS: Hemoglobin A1C% w Est Avg Glu 7.8 % (4.0-6.0)
== END ==
PROVIDERS: Family Provider Nurse Practitioner Family; PCP Internal Medicine; Referring Provider Internal Medicine; Visit Provider Internal Medicine
DX: E11.9 Type 2 diabetes mellitus without complications (principal); R60.9 Edema, unspecified
CPT/HCPCS: 36415; 80048; 83036

== ENCOUNTER → 2022-12-14 10:45 | Outpatient (CLI) | payer MEDICARE, SELFPAY ==
[2022-12-14 11:37] LABS: BUN Creatinine Ratio 24.2 (6-22); Blood Urea Nitrogen 16 mg/dL (9-20); Calcium 9.2 mg/dL (8.4-10.2); Carbon Dioxide 29 mmol/L (22-32); Chloride 98 mmol/L (98-107); Estimated Glomerular Filt Rate > 60 mL/min (>60); Glucose 175 mg/dL (80-110); HEMOLYSIS < 15 (0-50); Potassium 3.8 mmol/L (3.4-5.1); Sodium 135 mmol/L (137-145)
[2022-12-15 06:17] LABS: x Labcorp Estim. Avg Glu (eAG) 197 mg/dL (.); x Labcorp Hemoglobin A1c 8.5 % (4.8-5.6)
== END ==
PROVIDERS: Family Provider Nurse Practitioner Family; PCP Internal Medicine; Referring Provider Internal Medicine; Visit Provider Internal Medicine
DX: I10 Essential (primary) hypertension (principal); E11.65 Type 2 diabetes mellitus with hyperglycemia
CPT/HCPCS: 36415; 80048; 83036

== ENCOUNTER → 2023-04-05 08:28 | Outpatient (CLI) | payer MEDICARE, SELFPAY ==
[2023-04-05 09:47] LABS: BUN Creatinine Ratio 24.6 (6-22); Blood Urea Nitrogen 17 mg/dL (9-20); Calcium 9.7 mg/dL (8.4-10.2); Carbon Dioxide 30 mmol/L (22-32); Chloride 98 mmol/L (98-107); Cholesterol 142 mg/dL (140-199); Estimated Glomerular Filt Rate > 60 mL/min (>60); Glucose 149 mg/dL (80-110); HDL Cholesterol 30 mg/dL (40-60); HEMOLYSIS 27 (0-50); LDL Cholesterol Calculated 86 mg/dL (<100); Potassium 4.4 mmol/L (3.4-5.1); Sodium 134 mmol/L (137-145); Triglycerides 128 mg/dL (35-150)
[2023-04-05 09:51] LABS: Hemoglobin A1C% w Est Avg Glu 7.3 % (4.0-6.0)
[2023-04-05 11:18] LABS: Creatinine Urine Random 54.1 mg/dL
[2023-04-05 11:22] LABS: Microalbumi Creatinin Ratio Ur 86.8 ug/mg CR (<30); Microalbumin Urine Random 4.7 mg/dL (0-1.6)
== END ==
PROVIDERS: Family Provider Nurse Practitioner Family; PCP Internal Medicine; Referring Provider Internal Medicine; Visit Provider Internal Medicine
DX: E11.9 Type 2 diabetes mellitus without complications (principal); I10 Essential (primary) hypertension
CPT/HCPCS: 36415; 80048; 80061; 82043; 82570; 83036

== ENCOUNTER → 2023-05-30 09:09 | Outpatient (CLI) | payer MEDICARE, SELFPAY ==
--- NOTE | 2023-05-30 | DI.ECHO.S_ITS ---
[facility] +---------+ : : [address] [place] : : : : [id number] : : : : Phone: [phone] Echocardiogram Report + + :Name: OMAR CLEMENTS Study Date: 05/30/2023 Height: 69 in : :[facility] ReadingLocation: Weight: 260 lb : : Gender: Male BSA: 2.3 m2 : :: 1950 Age: 72 yrs BP: 174/91 mmHg: :Reason For Study: DYSPNEA : :Ordering Physician: EDER, : :JODEE Performed By: Lamar Perkins : :Referring: JODEE COELHO : + + Interpretation Summary 1) Mildly enlarged left ventricle with severely reduced systolic function (EF 25-30%). 2) Global hypokinesis present. There is a significant dyssynchronous contraction pattern, consistent with a conduction abnormality. 3) Mildly enlarged right ventricle with normal function. 4) No significant valvular abnormalities. 5) The right ventricular systolic pressure is estimated to be at least 36 mmHg based on an estimated right atrial pressure of 3 mm Hg. 6) Compared to the Echo done 11/26/2018, LVEF has decreased from normal to severely reduced on this study. Procedure: A two-dimensional transthoracic echocardiogram with color flow and Doppler was performed. The study quality was technically adequate. Comparison is made with the echocardiogram of 11/26/2018. The patient had a bundle branch block rhythm during the exam. The heart rate ranged between 65- 85 bpm during the study. Left Ventricle: The left ventricle is mildly dilated. There is normal left ventricular wall thickness. The ejection fraction is estimated to be 25-30%. There is a significant dyssynchronous contraction pattern, consistent with a conduction abnormality. Global hypokinesis present. Right Ventricle: The right ventricle is mildly dilated. The right ventricular systolic function is normal. Atria: The left atrium is mildly dilated. The right atrium is mildly dilated. There is no Doppler evidence for an interatrial shunt. Mitral Valve: The mitral valve is normal in structure and function. There is mild mitral regurgitation. Aortic Valve: The aortic valve is trileaflet. The aortic valve opens well. There is no aortic valve stenosis. There is mild aortic regurgitation. Tricuspid Valve: The tricuspid valve is normal in structure and function. There is mild tricuspid regurgitation. The right ventricular systolic pressure is estimated to be at least 36 mmHg based on an estimated right atrial pressure of 3 mm Hg. Pulmonic Valve: The pulmonic valve is not well visualized. There is mild pulmonic regurgitation. Great Vessels: The aortic root is not well visualized. The ascending aorta is at the upper limits of normal in size. The IVC is of normal diameter and collapses greater than 50% with a sniff. This suggests a low right atrial pressure of 3 mm Hg. Pericardium/ Pleura There is no pericardial effusion. There is no pleural effusion. MMode/2D Measurements & Calculations LVIDd: 6.2 cm LVOT diam: 2.1 cm LVIDs: 5.2 cm asc Aorta Diam: 3.9 cm FS: 15.9 % EPSS: 1.7 cm IVSd: 1.0 cm LVPWd: 0.95 cm LV stewart. diameter/BSA (cm/m^2): 2.7 LV sys. diameter/BSA (cm/m^2): 2.3 LA A2 area: 26.1 cm2 RA long axis: 6.1 cm LA A4 area: 25.5 cm2 RA area: 26.1 cm2 LA length (vol): 6.3 cm RA vol: 95.4 ml LA vol: 89.6 ml RA : 41.3 ml/m2 LA vol index: 38.8 ml/m2 IVC diam: 2.0 cm RVD1 (basal): 4.2 cm RVD2 (mid): 2.7 cm TAPSE: 2.0 cm Doppler Measurements & Calculations Ao V2 max: 149.7 cm/sec LVOT Max Beltran: 96.7 cm/sec Ao V2 mean: 110.0 cm/sec LV V1 max P.8 mmHg Ao max P.0 mmHg LV V1 VTI: 17.1 cm Ao mean P.3 mmHg DEN(I,D): 1.9 cm2 Ao V2 VTI: 31.0 cm DEN(V,D): 2.2 cm2 sev ratio: 0.55 DEN indexed to BSA (cm^2/m^2): 0.83 MV E max beltran: 98.5 cm/sec TR max beltran: 286.9 cm/sec MV A max beltran: 39.0 cm/sec TR max P.9 mmHg MV E/A: 2.5 PA V2 max: 82.4 cm/sec Med Peak E' Beltran: 6.4 cm/sec PA V2 mean: 56.4 cm/sec E/E' med: 15.5 PA mean P.4 mmHg Lat Peak E' Beltran: 8.5 cm/sec PA pr(Accel): 46.5 mmHg E/E' lat: 11.6 E/e' average: 13.6 MV dec time: 0.24 sec SV(LVOT): 59.3 ml Reading Physician:01:55 PM
== END ==
PROVIDERS: Family Provider Nurse Practitioner Family; PCP Internal Medicine; Referring Provider Internal Medicine Cardiovascular Disease; Visit Provider Internal Medicine Cardiovascular Disease
DX: I08.3 Combined rheumatic disorders of mitral, aortic and tricuspid valves (principal); R06.09 Other forms of dyspnea
CPT/HCPCS: 93306

== ENCOUNTER → 2023-07-06 09:40 | Outpatient (CLI) | payer MEDICARE, SELFPAY ==
[2023-07-06 10:51] LABS: BUN Creatinine Ratio 20.6 (6-22); Blood Urea Nitrogen 14 mg/dL (9-20); Calcium 9.8 mg/dL (8.4-10.2); Carbon Dioxide 30 mmol/L (22-32); Chloride 96 mmol/L (98-107); Estimated Glomerular Filt Rate > 60 mL/min (>60); Glucose 164 mg/dL (80-110); HEMOLYSIS < 15 (0-50); Sodium 135 mmol/L (137-145)
[2023-07-06 11:34] LABS: Hemoglobin A1C% w Est Avg Glu 7.9 % (4.0-6.0)
== END ==
LOC: LAB 09:41
PROVIDERS: Family Provider Nurse Practitioner Family; PCP Internal Medicine; Referring Provider Internal Medicine; Visit Provider Internal Medicine
DX: E11.9 Type 2 diabetes mellitus without complications (principal); I10 Essential (primary) hypertension
CPT/HCPCS: 36415; 80048; 83036

== ENCOUNTER → 2023-09-12 08:58 | Outpatient (CLI) | payer MEDICARE, SELFPAY ==
[2023-09-12 10:11] LABS: Hemoglobin A1C% w Est Avg Glu 8.9 % (4.0-6.0)
[2023-09-12 10:45] LABS: BUN Creatinine Ratio 16.9 (6-22); Blood Urea Nitrogen 12 mg/dL (9-20); Calcium 9.3 mg/dL (8.4-10.2); Carbon Dioxide 29 mmol/L (22-32); Chloride 100 mmol/L (98-107); Estimated Glomerular Filt Rate > 60 mL/min (>60); Glucose 179 mg/dL (80-110); HEMOLYSIS < 15 (0-50); Potassium 4.3 mmol/L (3.4-5.1); Sodium 135 mmol/L (137-145)
== END ==
PROVIDERS: Family Provider Nurse Practitioner Family; PCP Internal Medicine; Referring Provider Internal Medicine; Visit Provider Internal Medicine
DX: E11.9 Type 2 diabetes mellitus without complications (principal)
CPT/HCPCS: 36415; 80048; 83036

== ENCOUNTER → 2023-09-27 12:31 | Outpatient (CLI) | payer MEDICARE, SELFPAY | PROVIDERS: Family Provider Nurse Practitioner Family; PCP Internal Medicine; Visit Provider Nurse Practitioner Family | DX: J02.9 Acute pharyngitis, unspecified (principal) | CPT/HCPCS: 87070 ==

== ENCOUNTER → 2023-10-18 07:57 | Outpatient (CLI) | payer MEDICARE, SELFPAY ==
[2023-10-18 08:41] LABS: Hematocrit 43.3 % (41-53); Hemoglobin 14.6 g/dL (13.5-17.5); Mean Corpuscular HGB Conc 33.7 % (30-36); Platelet Count 217 X10^3/uL (150-400); Red Blood Cell Count 4.71 X10^6/uL (4.5-5.9); Red Cell Distribution Width 13.8 % (11.6-14.8); White Blood Cell Count 7.3 X10^3/uL (4.5-11.0)
[2023-10-18 09:07] LABS: BUN Creatinine Ratio 17.4 (6-22); Blood Urea Nitrogen 12 mg/dL (9-20); Calcium 9.6 mg/dL (8.4-10.2); Carbon Dioxide 32 mmol/L (22-32); Chloride 99 mmol/L (98-107); Cholesterol 110 mg/dL (140-199); Estimated Glomerular Filt Rate > 60 mL/min (>60); Glucose 127 mg/dL (80-110); HDL Cholesterol 29 mg/dL (40-60); HEMOLYSIS < 15 (0-50); LDL Cholesterol Calculated 26 mg/dL (<100); Potassium 4.6 mmol/L (3.4-5.1); Sodium 134 mmol/L (137-145); Triglycerides 273 mg/dL (35-150)
== END ==
PROVIDERS: Family Provider Nurse Practitioner Family; PCP Internal Medicine; Referring Provider Internal Medicine Cardiovascular Disease; Visit Provider Internal Medicine Cardiovascular Disease
DX: I25.10 Atherosclerotic heart disease of native coronary artery without angina pectoris (principal); I50.22 Chronic systolic (congestive) heart failure
CPT/HCPCS: 36415; 80048; 80061; 85027

== ENCOUNTER → 2023-10-19 12:20 | Outpatient (CLI) | payer MEDICARE, SELFPAY ==
--- NOTE | 2023-10-19 12:21 | DI.ECHO.S_ITS ---
[facility]+ [facility] : : [address] : : [place] : : [id number] : : Phone: [phone] Echocardiogram Report + + :Name: OMAR CLEMENTS Study Date: 10/19/2023 Height: 69 in : :[facility] ReadingLocation: Weight: 263 lb : : Gender: Male BSA: 2.3 m2 : :: 1950 Age: 73 yrs BP: 126/89 mmHg: :Reason For Study: CARDIOMYOPATHIES : :Ordering Physician: EDER, : :JODEE Performed By: Aguilar Doherty : :Referring: JODEE COELHO : + + Interpretation Summary 1) Normal sized left ventricle with severely reduced systolic function (EF 25- 30%). 2) Global hypokinesis present. There is a significant dyssynchronous contraction pattern, consistent with a conduction abnormality. 3) Grossly, normal right ventricular size and function. 4) No significant valvular abnormalities. 5) Compared to the Echo done 05/30/2023, no significant change. Procedure: A two-dimensional transthoracic echocardiogram with color flow and Doppler was performed. The study quality was technically adequate. Comparison is made with the echocardiogram of 05/30/2023. The patient was in sinus rhythm with heart rates between 66-84 bpm during the exam. Left Ventricle: The left ventricle is normal in size. There is mild concentric left ventricular hypertrophy. The ejection fraction is estimated to be 25-30%. Right Ventricle: The right ventricle is grossly normal size. The right ventricle is not well visualized. Right ventricular systolic function is mildly reduced. Atria: The left atrium is moderately dilated. Right atrial size is normal. The interatrial septum grossly appears intact with no obvious evidence for an atrial septal defect. Mitral Valve: The mitral valve is normal in structure and function. There is no mitral valve stenosis. There is mild mitral regurgitation. Aortic Valve: The aortic valve is not well visualized. There is no aortic valve stenosis. There is mild aortic regurgitation. Tricuspid Valve: The tricuspid valve is normal in structure and function. There is no tricuspid stenosis. There is mild tricuspid regurgitation. The right ventricular systolic pressure is estimated to be at least 33 mmHg based on an estimated right atrial pressure of 3 mm Hg. Pulmonic Valve: The pulmonic valve is not well visualized. There is no pulmonic valvular stenosis. There is no pulmonic valvular regurgitation. Great Vessels: The aortic root is normal size. The dimensions of the ascending aorta are normal. The IVC is of normal diameter and collapses greater than 50% with a sniff. This suggests a low right atrial pressure of 3 mm Hg. Pericardium/ Pleura There is no pericardial effusion. There is no pleural effusion. MMode/2D Measurements & Calculations LVIDd: 5.5 cm LVOT diam: 2.2 cm LVIDs: 4.9 cm Ao root diam: 3.4 cm FS: 12.0 % asc Aorta Diam: 3.6 cm IVSd: 1.4 cm LVPWd: 1.3 cm LV stewart. diameter/BSA (cm/m^2): 2.4 LV sys. diameter/BSA (cm/m^2): 2.1 LA A2 area: 29.2 cm2 RA long axis: 5.5 cm LA A4 area: 27.1 cm2 RA area: 18.7 cm2 LA length (vol): 6.6 cm RA vol: 54.5 ml LA vol: 102.8 ml RA : 23.5 ml/m2 LA vol index: 44.3 ml/m2 IVC diam: 1.2 cm RVD1 (basal): 4.1 cm TAPSE: 1.9 cm Doppler Measurements & Calculations Ao V2 max: 135.8 cm/sec LVOT Max Beltran: 103.4 cm/sec Ao V2 mean: 105.3 cm/sec LV V1 max P.3 mmHg Ao max P.4 mmHg LV V1 VTI: 21.7 cm Ao mean P.7 mmHg DEN(I,D): 3.2 cm2 Ao V2 VTI: 26.3 cm DEN(V,D): 3.0 cm2 sev ratio: 0.82 DEN indexed to BSA (cm^2/m^2): 1.4 MV E max beltran: 100.2 cm/sec TR max beltran: 277.8 cm/sec MV A max beltran: 31.1 cm/sec TR max P.9 mmHg MV E/A: 3.2 PA V2 max: 100.2 cm/sec Med Peak E' Beltran: 5.8 cm/sec PA V2 mean: 65.2 cm/sec E/E' med: 17.3 PA mean P.0 mmHg Lat Peak E' Beltran: 5.4 cm/sec PA pr(Accel): 39.0 mmHg E/E' lat: 18.7 E/e' average: 18.0 MV dec time: 0.22 sec SV(LVOT): 84.6 ml Reading Physician:12:35 PM
== END ==
PROVIDERS: Family Provider Nurse Practitioner Family; PCP Internal Medicine; Referring Provider Internal Medicine Cardiovascular Disease; Visit Provider Internal Medicine Cardiovascular Disease
DX: I42.8 Other cardiomyopathies (principal); I08.3 Combined rheumatic disorders of mitral, aortic and tricuspid valves
CPT/HCPCS: 93306

== ENCOUNTER → 2023-11-10 11:21 | Outpatient (CLI) | payer MEDICARE, SELFPAY ==
[2023-11-10 13:46] LABS: Alanine Aminotransferase 21 IU/L (<50); Albumin Globulin Ratio 1.6 (1.0-2.8); Alkaline Phosphatase 54 U/L (38-126); Aspartate Aminotransferase 30 IU/L (17-59); BUN Creatinine Ratio 16.2 (6-22); Bilirubin Total 0.7 mg/dL (0.2-1.3); Blood Urea Nitrogen 12 mg/dL (9-20); Calcium 8.7 mg/dL (8.4-10.2); Carbon Dioxide 29 mmol/L (22-32); Chloride 99 mmol/L (98-107); Estimated Glomerular Filt Rate > 60 mL/min (>60); Globulin 2.5 g/dL (1.7-4.1); Glucose 232 mg/dL (80-110); HEMOLYSIS < 15 (0-50); Potassium 4.6 mmol/L (3.4-5.1); Sodium 135 mmol/L (137-145); Total Protein 6.5 g/dL (6.3-8.2)
[2023-11-10 14:12] LABS: TSH w/ Reflex to FT4 1.44 uIU/mL (0.47-4.68)
== END ==
LOC: LAB 11:23
PROVIDERS: Family Provider Nurse Practitioner Family; PCP Internal Medicine; Referring Provider Nurse Practitioner Family; Visit Provider Nurse Practitioner Family
DX: I48.19 Other persistent atrial fibrillation (principal)
CPT/HCPCS: 36415; 80053; 84443

== ENCOUNTER → 2023-11-14 09:51 | Outpatient (CLI) | payer MEDICARE, SELFPAY ==
[2023-11-14 11:25] LABS: Hemoglobin A1C% w Est Avg Glu 8.3 % (4.0-6.0)
[2023-11-14 12:13] LABS: BUN Creatinine Ratio 21.2 (6-22); Blood Urea Nitrogen 14 mg/dL (9-20); Calcium 9.1 mg/dL (8.4-10.2); Carbon Dioxide 24 mmol/L (22-32); Chloride 101 mmol/L (98-107); Estimated Glomerular Filt Rate > 60 mL/min (>60); Glucose 160 mg/dL (80-110); HEMOLYSIS 26 (0-50); Potassium 4.7 mmol/L (3.4-5.1); Sodium 134 mmol/L (137-145)
== END ==
PROVIDERS: Family Provider Nurse Practitioner Family; PCP Internal Medicine; Referring Provider Internal Medicine; Visit Provider Internal Medicine
DX: E11.9 Type 2 diabetes mellitus without complications (principal); E66.9 Obesity, unspecified
CPT/HCPCS: 36415; 80048; 83036

== ENCOUNTER → 2024-01-04 10:17 | Outpatient (CLI) | payer MEDICARE, SELFPAY ==
[2024-01-04 12:17] LABS: Add Manual Diff / Slide Review NO; Basophils Absolute Auto 100 /uL (0-100); Basophils Percent Auto 0.9 % (0-2); Eosinophils Absolute Auto 100 /uL (0-450); Eosinophils Percent Auto 1.9 % (2-4); Hematocrit 42.2 % (41-53); Hemoglobin 14.2 g/dL (13.5-17.5); Lymphocytes Absolute Auto 1500 /uL (1100-4500); Lymphocytes Percent Auto 21.9 % (25-40); Mean Corpuscular HGB Conc 33.6 % (30-36); Mean Corpuscular Hemoglobin 31.8 PG (26-34); Mean Corpuscular Volume 94.5 fL (80-100); Monocytes Absolute Auto 600 /uL (0-900); Neutrophils Absolute Auto 4400 /uL (1500-7000); Neutrophils Percent Auto 66.3 % (50-75); Platelet Count 194 X10^3/uL (150-400); Red Blood Cell Count 4.47 X10^6/uL (4.5-5.9); Red Cell Distribution Width 13.5 % (11.6-14.8); White Blood Cell Count 6.7 X10^3/uL (4.5-11.0)
[2024-01-04 12:53] LABS: BUN Creatinine Ratio 13.3 (6-22); Blood Urea Nitrogen 12 mg/dL (9-20); Calcium 8.5 mg/dL (8.4-10.2); Carbon Dioxide 26 mmol/L (22-32); Chloride 101 mmol/L (98-107); Estimated Glomerular Filt Rate > 60 mL/min (>60); Glucose 124 mg/dL (80-110); HEMOLYSIS < 15 (0-50); Potassium 4.2 mmol/L (3.4-5.1); Sodium 135 mmol/L (137-145)
== END ==
PROVIDERS: Family Provider Nurse Practitioner Family; PCP Internal Medicine; Referring Provider Internal Medicine Cardiovascular Disease; Visit Provider Internal Medicine Cardiovascular Disease
DX: I42.0 Dilated cardiomyopathy (principal)
CPT/HCPCS: 36415; 80048; 85025

== ENCOUNTER 2024-03-14 12:30 | Outpatient (RCR) | payer MEDICARE, SELFPAY ==
--- OUTSIDE RECORDS SUMMARY | 2023-08-29 09:36 | XMS_ITS | Referral Summary ---
Author Name Unknown Organization [facility] Address [address] [place] [address] Care Team Providers Care Seismographer Name Role Phone ShortSaeed Primary Care Provider [phone] Reason for Referral * Rehabilitation - Outpatient - Authorized Specialty Diagnoses / Procedures Referred By Contac t Referred To Contact Cardiac Rehabilitation Diagnoses Chronic systolic heart failure (CMS-HCC) NICM (nonischemic cardiomyopathy) (CMS-HCC) Ruby Coelho MD [address] [place] [address] [address] [place] [address] [address] Referral ID Status Reason Start Date Expiration Date V isits Requested Visits Authorized [id number] Authorized 07/07/2023 07/01/2024 1 1 * Diagnostic Imaging (Urgent) - Pending Review Specialty Diagnoses / Procedures Referred By Contac t Referred To Contact Diagnoses NICM (nonischemic cardiomyopathy) ([facility]) Procedures ECHOCARDIOGRAM COMPLETE Ruby Coelho MD [address] [place] [address] [address] [place] [address] [address] Referral ID Status Reason Start Date Expiration Date Visits Requested Visits Authorized [id number] Pending Review Specialty Services Required 07/07/2023 07/01/2024 1 1 Reason for Visit * Reason Comments Heart Problem Encounter Details Date Type Department Care Team Description 07/07/2023 2:00 PM PST Office Visit [facility] Cardiology [address], [address] [place] [address] Ruby Coelho MD [address] [place] [address] [address] [place] [address] Chronic systolic heart failure (CMS-HCC) (Primary Dx); NICM (nonischemic cardiomyopathy) (CMS-HCC); LBBB (left bundle branch block); Persistent atrial fibrillation (CMS-HCC); ASHD (arteriosclerotic heart disease) Allergies Active Allergy Reactions Criticality Noted Date Comments Aspirin 11/16/2018 Flunisolide 11/16/2018 Lisinopril Swelling Medium 11/19/2018 documented as of this encounter (statuses as of 07/18/2023) Medications Medication Sig Dispensed Refills Start Date End Date Status cholecalciferol, vitamin D3, (VITAMIN D3 ORAL) Take 1,000 Units by mouth daily 0 Active SAW PALMETTO ORAL Take 1 tablet by mouth daily 0 Active ascorbic acid, vitamin C, 500 mg capsule Take 1 tablet by mouth daily 0 Active CHROMIUM PICOLINATE ORAL Take 1 tablet by mouth daily 0 Active b complex vitamins capsule Take 1 capsule by mouth daily 0 Active vitamin A 10,000 unit capsule Take 1 capsule (10,000 Units total) by mouth daily 0 Active HYDROcodone-aceta minophen (NORCO) 5-325 mg Take 1 tablet by mouth every 6 (six) hours as needed for moderate pain 0 Active ALPRAZolam (XANAX) 0.5 mg tablet Take 1 tablet (0.5 mg total) by mouth daily as needed 0 11/27/2018 Active glipiZIDE (GLUCOTROL) 5 mg tablet Take 1 tablet (5 mg total) by mouth 2 (two) times a day 0 07/11/2022 Active OneTouch Verio test strips strip 0 05/16/2023 Active apixaban (ELIQUIS) 5 mg tablet Take 1 tablet (5 mg total) by mouth 2 (two) times a day 180 tablet 3 06/06/2023 06/05/2024 Active Bystolic 10 mg tablet Take 0.5 tablets (5 mg total) by mouth daily Dispense as written, Bystolic. 45 tablet 3 06/07/2023 Active spironolactone (ALDACTONE) 25 mg tablet Take 0.5 tablets (12.5 mg total) by mouth daily 45 tablet 3 06/20/2023 06/19/2024 Active magnesium 30 mg tablet Take 1 tablet (30 mg total) by mouth 2 (two) times a day 0 Active rosuvastatin (CRESTOR) 5 mg tablet Take 0.5 tablets (2.5 mg total) by mouth nightly 45 tablet 3 07/07/2023 07/06/2024 Active sacubitriL-valsar romero (Entresto) 49-51 mg tablet tablet Take 1 tablet by mouth 2 (two) times a day (Replaces losartan) 180 tablet 3 07/07/2023 07/06/2024 Active multivitamin capsule Take 1 capsule by mouth daily 0 07/07/2023 Discontinued (Therapy completed) ALPHA LIPOIC ACID ORAL Take 1 tablet by mouth daily 0 07/07/2023 Discontinued (Therapy completed) ubidecarenone (COENZYME Q10 ORAL) Take 1 tablet by mouth daily 0 07/07/2023 Discontinued (Therapy completed) sacubitriL-valsar romero (Entresto) 49-51 mg tablet tablet Take 1 tablet by mouth 2 (two) times a day (Replaces losartan) 180 tablet 3 06/06/2023 07/07/2023 Discontinued (Reorder) documented as of this encounter (statuses as of 07/18/2023) Active Problems Problem Noted Date Diagnosed Date Essential hypertension 11/19/2018 Mixed hyperlipidemia 11/19/2018 Diabetes mellitus type II, non insulin dependent 11/19/2018 ASHTON (dyspnea on exertion) 11/19/2018 VILLA on CPAP 11/19/2018 documented as of this encounter (statuses as of 07/18/2023) Social History Tobacco Use Types Packs/Day Years Used Date Smoking Tobacco: Former Cigarettes Q uit: 1985 Smokeless Tobacco: Never Tobacco Cessation:Counseling Given: Not Answered Alcohol Use Standard Drinks/Week Comments Not Currently 0 (1 standard drink = 0.6 oz pur e alcohol) Sex and Gender Information Value Date Recorded Sex Assigned at Male 07/26/2021 10:09 AM PST Gender Identity Male 07/26/2021 10:09 AM PST Sexual Orientation Straight 07/26/2021 10 :09 AM PST Job Start Date Occupation Industry Not on file Not on file Not on file documented as of this encounter Last Filed Vital Signs Vital Sign Reading Time Taken Comments Blood Pressure 138/84 07/07/2023 1:58 PM PST Pulse 66 07/07/2023 1:58 PM PST Temperature - - Respiratory Rate - - Oxygen Saturation - - Inhaled Oxygen Concentration - - Weight 119 kg (262 lb 11.2 oz) 07/07/2023 1:58 P M PST Height 175.3 cm (5' 9.02) 07/07/2023 1:58 PM PS T Body Mass Index 38.78 07/07/2023 1:58 PM PST documented in this encounter Progress Notes * Ruby Coelho MD - 07/07/2023 2:00 PM PST Subjective Patient ID: Kayden Vance is a 72 y.o. male that presents today for had concerns including Heart Problem. HPI: 72 year old M with h/o HTN, HLD, and diabetes here for f/u on his AF. He is here with his , Emma. Since his last visit, he underwent cath that showed non-obstructive. He is starting to feelbetter from energy and dyspnea standpoint. He is now about to walk his dog. He has mild dizziness in certain position and it has been attributed to BPPV. He denies any chest discomfort, palpitations,or syncope. PROBLEM LIST: # HFrEF: diagnosed with EF 25-30% on Echo 05/30/2023 # LBBB: diagnosed 04/2023 # Persistent AF: diagnosed on holter 11/2018 # Hypertension # Hyperlipidemia # Diabetes mellitus, type II # VILLA with CPAP Past Medical History: Diagnosis Date Cancer ([facility]) Diabetes mellitus ([facility]) Hyperlipidemia Hypertension Obesity Sleep apnea History reviewed. No pertinent surgical history. Family History Problem Relation Age of Onset Heart attack Father Social History Socioeconomic History Marital status: Tobacco Use Smoking status: Former Types: Cigarettes Quit date: 1985 Years since quittin.0 Smokeless tobacco: Never Substance and Sexual Activity Alcohol use: Not Currently Drug use: Yes Frequency: 7.0 times per week Types: Hydrocodone, Marijuana Comment: nightly mj for sleep, norco for pain mgmt Sexual activity: Defer Allergies Allergen Reactions Lisinopril Swelling Aspirin Flunisolide Current Medication List Sig magnesium 30 mg tablet Take 1 tablet (30 mg total) by mouth 2 (two) times a day ALPRAZolam (XANAX) 0.5 mg tablet Take 1 tablet (0.5 mg total) by mouth daily as needed apixaban (ELIQUIS) 5 mg tablet Take 1 tablet (5 mg total) by mouth 2 (two) times a day ascorbic acid, vitamin C, 500 mg capsule Take 1 tablet by mouth daily b complex vitamins capsule Take 1 capsule by mouth daily Bystolic 10 mg tablet Take 0.5 tablets (5 mg total) by mouth daily Dispense as written, Alberto. cholecalciferol, vitamin D3, (VITAMIN D3 ORAL) Take 1,000 Units by mouth daily CHROMIUM PICOLINATE ORAL Take 1 tablet by mouth daily glipiZIDE (GLUCOTROL) 5 mg tablet Take 1 tablet (5 mg total) by mouth 2 (two) times a day HYDROcodone-acetaminophen (NORCO) 5-325 mg Take 1 tablet by mouth every 6 (six) hours as needed formoderate pain OneTouch Verio test strips strip rosuvastatin (CRESTOR) 5 mg tablet Take 0.5 tablets (2.5 mg total) by mouth nightly sacubitriL-valsartan (Entresto) 49-51 mg tablet tablet Take 1 tablet by mouth 2 (two) times a day (Replaces losartan) SAW PALMETTO ORAL Take 1 tablet by mouth daily spironolactone (ALDACTONE) 25 mg tablet Take 0.5 tablets (12.5 mg total) by mouth daily vitamin A 10,000 unit capsule Take 1 capsule (10,000 Units total) by mouth daily ALPHA LIPOIC ACID ORAL (Discontinued) Take 1 tablet by mouth daily multivitamin capsule (Discontinued) Take 1 capsule by mouth daily sacubitriL-valsartan (Entresto) 49-51 mg tablet tablet (Discontinued) Take 1 tablet by mouth 2 (two) times a day (Replaces losartan) ubidecarenone (COENZYME Q10 ORAL) (Discontinued) Take 1 tablet by mouth daily Review of Systems Constitutional: Positive for fatigue. Negative for unexpected weight change. Eyes: Negative for itching and visual disturbance. Respiratory: Negative for chest tightness and shortness of breath. Cardiovascular: Negative for chest pain, palpitations and leg swelling. Gastrointestinal: Negative for blood in stool. Endocrine: Negative for polydipsia. Genitourinary: Negative for hematuria. Musculoskeletal: Negative for myalgias. Skin: Negative for rash. Neurological: Negative for dizziness, weakness and light-headedness. Hematological: Does not bruise/bleed easily. Psychiatric/Behavioral: The patient is not nervous/anxious. All other systems reviewed and are negative. Objective BP 138/84 (BP Location: Left arm, Patient Position: Sitting) Pulse 66 Ht 1.753 m Wt 119 kg BMI 38.78 kg/m?? Physical Exam: General appearance: No apparent distress, well-nourished, pleasant, cooperative HEET: Normocephalic atraumatic, no scleral icterus, tongue midline, mucous membranes moist Neck: supple Cardiovascular: RRR, normal S1 and normal S2, no murmurs/ rubs/gallops, PMI nondisplaced, no JVD, no peripheral edema Respiratory: Good aeration, CTAB Abdomen: Soft, nontender, nondistended, + bowel sounds Neuro: Alert, no facial droop, tongue midline, no gross motor deficits Psych: appropriate affect Skin: no rashes on face, neck, and lower extremities Cath 06/20/2023: Non-obstructive disease (mild to moderate luminal irregularites in the LAD). Echo 05/30/2023: 1) Mildly enlarged left ventricle with severely reduced systolic function (EF 25-30%). 2) Global hypokinesis present. There is a significant dyssynchronous contraction pattern, consistent with a conduction abnormality. 3) Mildly enlarged right ventricle with normal function. 4) No significant valvular abnormalities. 5) The right ventricular systolic pressure is estimated to be at least 36 mmHg based on an estimated right atrial pressure of 3 mm Hg. 6) Compared to the Echo done 11/26/2018, LVEF has decreased from normal to severely reduced on this study. Stress test 11/27/2018: Low risk, normal treadmill only ECG stress test 1) No ECG evidence of ischemia. Occasional PACs and PVCs during the study. 2) No angina during the exercise 3) Good exercise tolerance (9.7 METs, MAMTA -20%). Target heart rate reached. 4) Hypertension at rest (BP 155/77mmHg) and borderline hypertensive response with exercise (BP 244/76mmHg). Zio : agree with Findings of this one week monitor. 1 run of Ventricular Tachycardia occurred lasting 8 beats with a max rate of 185 bpm (avg 167 bpm). Atrial Fibrillation occurred continuously (100% burden), ranging from 38-123 bpm (avg of 67 bpm). 1 Pause occurred lasting 3 secs (20 bpm). Rare PVCs present. EKG 01/03/2019: normal Labs 09/12/2018: sodium 139, potassium 3.8, chloride 101, CO2 29, BUN 17, creatinine 0.8, LDL 110, HDL 30 Labs 04/01/2019: sodium 140, potassium 4.3, chloride 98, CO2 30, BUN 18, Cr 0.8, HbA1c 5.9%, WBC 38, HCt 41.5, Plt 181 Labs 03/24/2020: TC 150, TG 176, HDL 34, LDL 90, sodium 135, potassium 4.4, chloride 98, CO2 25, BUN18, Cr 0.67, GFR 77, WBC 4.99, Hct 43.3, Plt 203 Labs 01/14/2021: WBC 5.7, Hct 43.5, Plt 176, TSH 0.548, FT4 1.1, sodium 137, potassium 3.4, [id number], CO2 25, BUN 16, Cr 0.9, HbA1c 7.3% Labs 06/16/2022: sodium 137, potassium 3.7, chloride 98, cO2 29, BUN 14, Cr 0.7, HbA1c 7.7% Labs 07/03/2023: sodium 137, potassium 4.2, chloride 100, cO2 30, BUN 13, Cr 0.7 Assessment/Plan Comments: 1. Chronic systolic heart failure ([facility]) Basic metabolic panel, Complete blood count without diff, Ambulatory Referral to Cardiac Rehabilitation 2. NICM (nonischemic cardiomyopathy) ([facility] [place]) ECHOCARDIOGRAM COMPLETE, Ambulatory Referral to Cardiac Rehabilitation 3. LBBB (left bundle branch block) 4. Persistent atrial fibrillation ([facility]) 5. ASHD (arteriosclerotic heart disease) Lipid panel # HFrEF: diagnosed with EF 25-30% on Echo 05/30/2023. Etiology could be LBBB or idiopathic. Cath 06/2023 showed non-obstructive CAD, making ischemic cardiomyopathy unlikely. He is NYHA class III and euvolemic on exam. Plan: - Nebivolol as below - Continue entresto 49-51mg bid - Continue spironolactone 12.5mg daily - Echo after 3 months - If EF remains less than 35%, refer the patient for [employer]-D implantation # LBBB: diagnosed 04/2023 # Paroxysmal AF: diagnosed on holter 11/2018 that was fairly well rate controlled. No symptoms. Patient's rhythm converted to sinus rhythm spontaneously on subsequent ECG; however, rhythm noted to be AF on zio 05/2023. CHADSVASC score is 3 (1 for age > 65, 1 for diabetes, 1 for HTN), suggesting be nefit from therapeutic anticoagulation. Plan: - s/p metoprolol XL 50mg daily and it was stopped as it was causing fatigue - s/p diltiazem 240mg qAM and it was stopped as it caused leg edema - Continue bystolic 5mg daily. 10mg dose causes 3 second pauses on zio -05/2023 - Continue eliquis 5mg bid. # CAD: Non-obstructive disease (mild to moderate luminal irregularites in the LAD) on cath 06/2023. - Patient reports having myalgias with pravastatin, atorvastatin. I prescribed rosuvastatin 2.5mg qhs in 03/2019 but he never took due to concern for myalgias # Diabetes mellitus, type II: well controlled. - Defer to PCP for management F/U in 3-4 months with echo and labs. Meds refilled. Electronically signed by Ruby Coelho MD 07/07/2023 2:20 PM documented in this encounter Plan of Treatment Upcoming Encounters Date Type Department Care Team Description 08/08/2023 11:30 AM PST Office Visit [facility] [address] [place] [address] Willa Garay ARNP [address] [place] [address] 10/25/2023 11:00 AM PDT Office Visit [facility] Cardiology [address], [place] [address] Ruby Coelho MD [address] [place] [address] [address] [place] [address] Scheduled Orders Name Type Priority Associated Diagnoses Order Schedule Basic metabolic panel Lab Routine Chronic systolic heart failure ([facility]) Expected: 10/06/2023, Expires: 01/04/2025 Complete blood count without diff Lab Routine Chronic systolic heart failure ([facility]) Expected: 10/06/2023, Expires: 01/04/2025 ECHOCARDIOGRAM COMPLETE Imaging Urgent ( Imaging Only) NICM (nonischemic cardiomyopathy) ([facility]) Expected: 10/06/2023, Expires: 01/27/2027 Lipid panel Lab Routine ASHD (arteriosclerotic heart disease) Expected: 10/06/2023, Expires: 01/04/2025 Scheduled Referrals Name Type Priority Associated Diagnoses Order Schedule Ambulatory Referral to Cardiac Rehabilitation Outpatient Referral Routine Chronic systolic heart failure ([facility]) NICM (nonischemic cardiomyopathy) ([facility]) Ordered: 07/07/2023 documented as of this encounter Visit Diagnoses Diagnosis Chronic systolic heart failure ([facility])- Primary Chronic systolic heart failure NICM (nonischemic cardiomyopathy) ([facility]) LBBB (left bundle branch block) Other left bundle branch block Persistent atrial fibrillation ([facility]) Atrial fibrillation ASHD (arteriosclerotic heart disease) Coronary atherosclerosis of unspecified type of vessel, [place] or graft documented in this encounter Advance Directives Latest Code Status on File Code Status Date Activated Date Inactivated Comments Full Code 06/20/2023 7:37 AM 06/21/2023 2:36 AM Care Teams Seismographer Relationship Specialty Start Date End Date Saeed Short [address] [place] [id number] PCP - General 01/18/17 documented as of this encounter
== END 2024-03-14 14:30 ==
LOC: CAR 12:30
PROVIDERS: Family Provider Nurse Practitioner Family; PCP Internal Medicine; Referring Provider Internal Medicine Cardiovascular Disease; Visit Provider Internal Medicine Cardiovascular Disease
DX: I50.22 Chronic systolic (congestive) heart failure (principal); I42.8 Other cardiomyopathies
CPT/HCPCS: 93798

== ENCOUNTER → 2024-03-18 11:28 | Outpatient (CLI) | payer MEDICARE, SELFPAY ==
[2024-03-18 13:02] LABS: Add Manual Diff / Slide Review NO; Basophils Absolute Auto 0 /uL (0-100); Basophils Percent Auto 0.6 % (0-2); Eosinophils Absolute Auto 100 /uL (0-450); Eosinophils Percent Auto 1.2 % (2-4); Hematocrit 42.5 % (41-53); Hemoglobin 14.3 g/dL (13.5-17.5); Lymphocytes Absolute Auto 1300 /uL (1100-4500); Lymphocytes Percent Auto 16.4 % (25-40); Mean Corpuscular HGB Conc 33.6 % (30-36); Mean Corpuscular Hemoglobin 30.9 PG (26-34); Mean Corpuscular Volume 92.2 fL (80-100); Monocytes Absolute Auto 600 /uL (0-900); Monocytes Percent Auto 7.5 % (3-14); Neutrophils Absolute Auto 5800 /uL (1500-7000); Neutrophils Percent Auto 74.3 % (50-75); Platelet Count 173 X10^3/uL (150-400); Red Blood Cell Count 4.62 X10^6/uL (4.5-5.9); Red Cell Distribution Width 13.6 % (11.6-14.8); White Blood Cell Count 7.8 X10^3/uL (4.5-11.0)
[2024-03-18 13:43] LABS: BUN Creatinine Ratio 12.5 (6-22); Blood Urea Nitrogen 11 mg/dL (9-20); Calcium 9.3 mg/dL (8.4-10.2); Carbon Dioxide 30 mmol/L (22-32); Chloride 97 mmol/L (98-107); Estimated Glomerular Filt Rate > 60 mL/min (>60); Glucose 147 mg/dL (80-110); HEMOLYSIS < 15 (0-50); Potassium 4.4 mmol/L (3.4-5.1); Sodium 135 mmol/L (137-145)
== END ==
PROVIDERS: Family Provider Nurse Practitioner Family; PCP Internal Medicine; Referring Provider Nurse Practitioner Family; Visit Provider Nurse Practitioner Family
DX: I48.19 Other persistent atrial fibrillation
CPT/HCPCS: 36415; 80048; 85025

== ENCOUNTER → 2024-03-25 14:37 | Outpatient (CLI) | payer MEDICARE, SELFPAY ==
[2024-03-25 15:45] LABS: Hemoglobin A1C% w Est Avg Glu 8.2 % (4.0-6.0)
== END ==
PROVIDERS: Family Provider Nurse Practitioner Family; PCP Internal Medicine; Referring Provider Internal Medicine; Visit Provider Internal Medicine
DX: E11.9 Type 2 diabetes mellitus without complications (principal)
CPT/HCPCS: 36415; 83036

== ENCOUNTER → 2024-05-17 10:07 | Outpatient (CLI) | payer MEDICARE, SELFPAY ==
[2024-05-17 10:34] LABS: Add Manual Diff / Slide Review NO; Basophils Absolute Auto 100 /uL (0-100); Eosinophils Absolute Auto 100 /uL (0-450); Eosinophils Percent Auto 2.2 % (2-4); Hemoglobin 15.2 g/dL (13.5-17.5); Lymphocytes Absolute Auto 1400 /uL (1100-4500); Lymphocytes Percent Auto 27.1 % (25-40); Mean Corpuscular HGB Conc 33.9 % (30-36); Mean Corpuscular Hemoglobin 31.4 PG (26-34); Mean Corpuscular Volume 92.9 fL (80-100); Monocytes Absolute Auto 500 /uL (0-900); Monocytes Percent Auto 9.3 % (3-14); Neutrophils Absolute Auto 3200 /uL (1500-7000); Neutrophils Percent Auto 60.4 % (50-75); Platelet Count 181 X10^3/uL (150-400); Red Blood Cell Count 4.84 X10^6/uL (4.5-5.9); Red Cell Distribution Width 13.9 % (11.6-14.8); White Blood Cell Count 5.3 X10^3/uL (4.5-11.0)
[2024-05-17 10:53] LABS: BUN Creatinine Ratio 11.4 (6-22); Blood Urea Nitrogen 10 mg/dL (9-20); Calcium 9.3 mg/dL (8.4-10.2); Carbon Dioxide 27 mmol/L (22-32); Chloride 100 mmol/L (98-107); Estimated Glomerular Filt Rate > 60 mL/min (>60); Glucose 113 mg/dL (80-110); HEMOLYSIS 47 (0-50); Potassium 3.9 mmol/L (3.4-5.1); Sodium 135 mmol/L (137-145)
== END ==
LOC: LAB 10:08
PROVIDERS: Family Provider Nurse Practitioner Family; PCP Internal Medicine; Referring Provider Internal Medicine Cardiovascular Disease; Visit Provider Internal Medicine Cardiovascular Disease
DX: I48.19 Other persistent atrial fibrillation (principal)
CPT/HCPCS: 36415; 80048; 85025

== ENCOUNTER → 2024-05-29 11:19 | Outpatient (CLI) | payer MEDICARE, SELFPAY ==
[2024-05-29 12:59] LABS: BUN Creatinine Ratio 11.8 (6-22); Blood Urea Nitrogen 11 mg/dL (9-20); Calcium 9.6 mg/dL (8.4-10.2); Carbon Dioxide 29 mmol/L (22-32); Chloride 99 mmol/L (98-107); Estimated Glomerular Filt Rate > 60 mL/min (>60); Glucose 89 mg/dL (80-110); HEMOLYSIS < 15 (0-50); Sodium 135 mmol/L (137-145)
[2024-05-29 13:23] LABS: Hemoglobin A1C% w Est Avg Glu 6.8 % (4.0-6.0)
== END ==
PROVIDERS: Family Provider Nurse Practitioner Family; PCP Internal Medicine; Referring Provider Internal Medicine; Visit Provider Internal Medicine
DX: E11.65 Type 2 diabetes mellitus with hyperglycemia (principal); I10 Essential (primary) hypertension
CPT/HCPCS: 36415; 80048; 83036

== ENCOUNTER → 2024-06-18 07:12 | Outpatient (CLI) | payer MEDICARE, SELFPAY ==
--- NOTE | 2024-06-18 07:14 | DI.ECHO.S_ITS ---
[facility] +---------+ [facility] : : [address] : : [place] : : [id number] : : Phone: [phone] Echocardiogram Report + + :Name: OMAR CLEMENTS Study Date: 06/18/2024 Height: 69 in : :[facility] ReadingLocation: Weight: 245 lb : : Gender: Male BSA: 2.3 m2 : :: 1950 Age: 73 yrs BP: 168/95 mmHg: :Reason For Study: SYSTOLIC HEART FAILURE : :Ordering Physician: EDER, : :JODEE Performed By: Aguilar Doherty : :Referring: JODEE COELHO : + + Interpretation Summary 1) Normal left ventricular size with mildly to moderately reduced systolic function (EF 40-45%). 2) Mildly enlarged right ventricle with normal function. There is a pacemaker lead in the right ventricle 3) No significant valvular abnormalities. 4) Compared to the Echo done 10/19/2023, LVEF has improved from 25-30% to 40-45% on this study. Procedure: A two-dimensional transthoracic echocardiogram with color flow and Doppler was performed. A contrast injection of Definity was performed to improve assessment of LV function. The study quality was technically difficult. Comparison is made with the echocardiogram of 10/19/2023. The patient was in normal sinus rhythm during the exam. Left Ventricle: The left ventricle is normal in size. Left ventricular wall thickness is mildly increased. There is no ventricular septal defect visualized. The ejection fraction is estimated to be 40-45%. There is mild to moderate global hypokinesis of the left ventricle. Right Ventricle: The right ventricle is mildly dilated. There is a pacemaker lead in the right ventricle. The right ventricular systolic function is normal. Atria: The left atrium is mildly dilated. The right atrium is mildly dilated. There is no Doppler evidence for an interatrial shunt. Mitral Valve: The mitral valve leaflets appear mildly thickened, but open well. The mitral valve leaflets appear to open well. There is trace mitral regurgitation. Aortic Valve: The aortic valve is trileaflet. The aortic valve opens well. The aortic valve is slightly calcified. There is no aortic valve stenosis. There is mild aortic regurgitation. Tricuspid Valve: The tricuspid valve leaflets are thin and pliable. No tricuspid regurgitation. Pulmonic Valve: The pulmonic valve leaflets are thin and pliable; valve motion is normal. There is no pulmonic valvular regurgitation. Great Vessels: The aortic root is normal size. The ascending aorta is at the upper limits of normal in size. The pulmonary artery is normal size. The IVC is of normal diameter and collapses greater than 50% with a sniff. This suggests a low right atrial pressure of 3 mm Hg. Pericardium/ Pleura There is no pericardial effusion. There is no pleural effusion. MMode/2D Measurements & Calculations LVIDd: 5.2 cm LVOT diam: 2.2 cm LVIDs: 4.1 cm Ao root diam: 3.4 cm FS: 20.4 % asc Aorta Diam: 3.9 cm EPSS: 1.1 cm IVSd: 1.2 cm LVPWd: 1.2 cm LV stewart. diameter/BSA (cm/m^2): 2.3 LV sys. diameter/BSA (cm/m^2): 1.8 LA A2 area: 22.0 cm2 RA long axis: 4.9 cm LA A4 area: 25.2 cm2 RA area: 15.5 cm2 LA length (vol): 6.2 cm RA vol: 42.0 ml LA vol: 76.2 ml RA : 18.6 ml/m2 LA vol index: 33.9 ml/m2 IVC diam: 1.0 cm RVD1 (basal): 4.2 cm RVD2 (mid): 3.1 cm TAPSE: 2.6 cm Doppler Measurements & Calculations Ao V2 max: 148.3 cm/sec LVOT Max Beltran: 110.9 cm/sec Ao V2 mean: 111.5 cm/sec LV V1 max P.9 mmHg Ao max P.8 mmHg LV V1 VTI: 23.1 cm Ao mean P.3 mmHg DEN(I,D): 2.8 cm2 Ao V2 VTI: 31.8 cm DEN(V,D): 2.9 cm2 sev ratio: 0.73 DEN indexed to BSA (cm^2/m^2): 1.2 MV E max beltran: 64.7 cm/sec PA V2 max: 108.8 cm/sec MV A max beltran: 71.4 cm/sec PA V2 mean: 65.9 cm/sec MV E/A: 0.91 PA mean P.1 mmHg Med Peak E' Beltran: 7.3 cm/sec PA pr(Accel): 27.6 mmHg E/E' med: 8.8 Lat Peak E' Beltran: 5.9 cm/sec E/E' lat: 11.0 E/e' average: 9.9 MV dec time: 0.26 sec SV(LVOT): 88.2 ml Reading Physician:03:04 PM
== END ==
PROVIDERS: Family Provider Nurse Practitioner Family; PCP Internal Medicine; Referring Provider Internal Medicine Cardiovascular Disease; Visit Provider Internal Medicine Cardiovascular Disease
DX: I35.1 Nonrheumatic aortic (valve) insufficiency (principal); I50.22 Chronic systolic (congestive) heart failure; I42.8 Other cardiomyopathies; I44.7 Left bundle-branch block, unspecified
CPT/HCPCS: C8929; Q9957

== ENCOUNTER → 2024-07-31 10:49 | Outpatient (CLI) | payer MEDICARE, SELFPAY ==
[2024-07-31 11:21] LABS: Estimated Glomerular Filt Rate > 60 mL/min (>60)
--- NOTE | 2024-07-31 13:05 | DI.CT.S_ITS ---
PROCEDURE: CT ANGIO CHEST INDICATIONS: paroxysmal atrial fibrilliation TECHNIQUE: After the administration of intravenous contrast, 2 mm thick sections acquired from the pulmonary apices to the posterior costophrenic angles. 3-dimensional maximum intensity projection (MIP) coronal and sagittal reformats were then acquired through the thorax. For radiation dose reduction, the following was used: automated exposure control, adjustment of mA and/or kV according to patient size. COMPARISON: X-ray 01/08/2024 FINDINGS: Image quality: Diagnostic. Pulmonary arteries: Not adequately opacified. Thoracic Vessels: No aortic aneurysm or dissection. Lower Neck: No enlarged lymph nodes. Thyroid: There is a 1 centimeter right thyroid nodule. Axillae: No enlarged lymph nodes. Chest Wall: There is a left chest wall pacemaker. Bones: Unremarkable. Lungs and Pleura: No pneumothorax or pleural effusions. There is a calcified granuloma in the left lung base. There are patchy reticular nodular infiltrates in the right upper lung posteriorly. There is an area of moderate consolidation involving lateral segment of the right middle lobe. Heart: Heart size is normal. No pericardial effusion. Coronary artery calcifications are present. . Mediastinum and Colette: No enlarged lymph nodes. Esophagus: No wall thickening. No hiatal hernia. Upper Abdomen: Visualized upper abdomen solid organs and bowel loops appear normal. IMPRESSION: No evidence of an aortic dissection or aneurysm. Patchy peripheral consolidative infiltrate in the right middle lobe and reticular nodular densities in the right right upper lobe. Differential includes inflammatory infectious processes. Clinical correlation is recommended and continued imaging surveillance till resolution. Suboptimal opacification of the pulmonary arteries. Dictated by: Migdalia Faust M.D. on 07/31/2024 at 14:31 Approved by: Migdalia Faust M.D. on 07/31/2024 at 14:54
== END ==
LOC: CT 10:49
PROVIDERS: Radiology Diagnostic Radiology; Family Provider Nurse Practitioner Family; PCP Internal Medicine; Referring Provider Internal Medicine Cardiovascular Disease; Visit Provider Internal Medicine Cardiovascular Disease
DX: I48.0 Paroxysmal atrial fibrillation (principal); I25.10 Atherosclerotic heart disease of native coronary artery without angina pectoris
CPT/HCPCS: 36415; 71275; 82565; Q9967

== ENCOUNTER → 2024-10-18 10:51 | Outpatient (CLI) | payer MEDICARE, SELFPAY ==
[2024-10-18 12:28] LABS: Add Manual Diff / Slide Review NO; Basophils Absolute Auto 100 /uL (0-100); Basophils Percent Auto 1.3 % (0-2); Eosinophils Absolute Auto 200 /uL (0-450); Eosinophils Percent Auto 2.8 % (2-4); Hematocrit 37.2 % (41-53); Hemoglobin 12.9 g/dL (13.5-17.5); Lymphocytes Absolute Auto 1200 /uL (1100-4500); Lymphocytes Percent Auto 18.5 % (25-40); Mean Corpuscular HGB Conc 34.7 % (30-36); Mean Corpuscular Hemoglobin 32.5 PG (26-34); Mean Corpuscular Volume 93.7 fL (80-100); Monocytes Absolute Auto 700 /uL (0-900); Neutrophils Absolute Auto 4200 /uL (1500-7000); Neutrophils Percent Auto 66.4 % (50-75); Platelet Count 189 X10^3/uL (150-400); Red Blood Cell Count 3.97 X10^6/uL (4.5-5.9); Red Cell Distribution Width 12.9 % (11.6-14.8); White Blood Cell Count 6.3 X10^3/uL (4.5-11.0)
[2024-10-18 13:00] LABS: BUN Creatinine Ratio 13.5 (6-22); Blood Urea Nitrogen 12 mg/dL (9-20); Calcium 9.3 mg/dL (8.4-10.2); Carbon Dioxide 28 mmol/L (22-32); Chloride 97 mmol/L (98-107); Estimated Glomerular Filt Rate > 60 mL/min (>60); Glucose 101 mg/dL (70-99); HEMOLYSIS 17 (0-50); Potassium 4.1 mmol/L (3.4-5.1); Sodium 135 mmol/L (137-145)
== END ==
LOC: LAB 10:53
PROVIDERS: Family Provider Nurse Practitioner Family; PCP Internal Medicine; Referring Provider Internal Medicine Cardiovascular Disease; Visit Provider Internal Medicine Cardiovascular Disease
DX: I48.0 Paroxysmal atrial fibrillation (principal)
CPT/HCPCS: 36415; 80048; 85025

== ENCOUNTER → 2024-11-29 08:07 | Outpatient (CLI) | payer MEDICARE, SELFPAY ==
[2024-11-29 09:21] LABS: Hemoglobin A1C% w Est Avg Glu 6.4 % (4.0-6.0)
[2024-11-29 09:28] LABS: Alanine Aminotransferase 27 IU/L (<50); Albumin 4.5 g/dL (3.5-5.0); Albumin Globulin Ratio 1.9 (1.0-2.8); Alkaline Phosphatase 39 U/L (38-126); Aspartate Aminotransferase 32 IU/L (17-59); BUN Creatinine Ratio 12.2 (6-22); Bilirubin Total 0.7 mg/dL (0.2-1.3); Blood Urea Nitrogen 12 mg/dL (9-20); Calcium 9.7 mg/dL (8.4-10.2); Carbon Dioxide 28 mmol/L (22-32); Chloride 97 mmol/L (98-107); Cholesterol 138 mg/dL (140-199); Estimated Glomerular Filt Rate > 60 mL/min (>60); Globulin 2.4 g/dL (1.7-4.1); Glucose 102 mg/dL (70-99); HDL Cholesterol 43 mg/dL (40-60); HEMOLYSIS 24 (0-50); LDL Cholesterol Calculated 46 mg/dL (<100); Potassium 4.3 mmol/L (3.4-5.1); Sodium 134 mmol/L (137-145); Total Protein 6.9 g/dL (6.3-8.2); Triglycerides 245 mg/dL (35-150)
== END ==
PROVIDERS: Family Provider Nurse Practitioner Family; PCP Internal Medicine; Referring Provider Internal Medicine; Visit Provider Internal Medicine
DX: E11.9 Type 2 diabetes mellitus without complications (principal); I10 Essential (primary) hypertension; I48.0 Paroxysmal atrial fibrillation
CPT/HCPCS: 36415; 80053; 80061; 83036

== ENCOUNTER → 2025-01-24 11:48 | Outpatient (CLI) | payer MEDICARE, SELFPAY ==
[2025-01-24 12:15] LABS: Add Manual Diff / Slide Review NO; Hematocrit 40.4 % (41-53); Hemoglobin 13.8 g/dL (13.5-17.5); Lymphocytes Absolute Auto 1800 /uL (1100-4500); Mean Corpuscular HGB Conc 34.2 % (30-36); Mean Corpuscular Hemoglobin 31.8 PG (26-34); Mean Corpuscular Volume 93.2 fL (80-100); Platelet Count 177 X10^3/uL (150-400)
[2025-01-24 14:31] LABS: Alanine Aminotransferase 32 IU/L (<50); Albumin 4.4 g/dL (3.5-5.0); Albumin Globulin Ratio 1.7 (1.0-2.8); Alkaline Phosphatase 49 U/L (38-126); Blood Urea Nitrogen 14 mg/dL (9-20); Calcium 9.4 mg/dL (8.4-10.2); Carbon Dioxide 25 mmol/L (22-32); Chloride 96 mmol/L (98-107); Estimated Glomerular Filt Rate > 60 mL/min (>60); Globulin 2.6 g/dL (1.7-4.1); Glucose 197 mg/dL (70-99); HEMOLYSIS < 15 (0-50); Potassium 4.2 mmol/L (3.4-5.1); Sodium 133 mmol/L (137-145); Total Protein 7.0 g/dL (6.3-8.2)
[2025-01-24 19:09] LABS: TSH w/ Reflex to FT4 1.70 uIU/mL (0.47-4.68)
== END ==
PROVIDERS: PCP Internal Medicine; Referring Provider Internal Medicine; Visit Provider Internal Medicine
DX: D64.9 Anemia, unspecified (principal); E03.9 Hypothyroidism, unspecified; I10 Essential (primary) hypertension; I48.0 Paroxysmal atrial fibrillation
CPT/HCPCS: 36415; 80053; 84443; 85025

== ENCOUNTER → 2025-03-11 14:02 | Outpatient (CLI) | payer MEDICARE, SELFPAY ==
[2025-03-11 14:31] LABS: Hemoglobin A1C% w Est Avg Glu 7.5 % (4.0-6.0)
[2025-03-11 15:14] LABS: Alanine Aminotransferase 43 IU/L (<50); Albumin 4.4 g/dL (3.5-5.0); Albumin Globulin Ratio 1.6 (1.0-2.8); Alkaline Phosphatase 45 U/L (38-126); Blood Urea Nitrogen 6 mg/dL (9-20); Calcium 9.2 mg/dL (8.4-10.2); Carbon Dioxide 26 mmol/L (22-32); Chloride 99 mmol/L (98-107); Cholesterol 193 mg/dL (140-199); Estimated Glomerular Filt Rate > 60 mL/min (>60); Globulin 2.7 g/dL (1.7-4.1); Glucose 169 mg/dL (70-99); HDL Cholesterol 35 mg/dL (40-60); HEMOLYSIS 33 (0-50); Potassium 3.7 mmol/L (3.4-5.1); Sodium 134 mmol/L (137-145); Total Protein 7.1 g/dL (6.3-8.2); Triglycerides 422 mg/dL (35-150)
== END ==
PROVIDERS: PCP Internal Medicine; Referring Provider Internal Medicine; Visit Provider Internal Medicine
DX: E11.9 Type 2 diabetes mellitus without complications (principal); I10 Essential (primary) hypertension; F11.20 Opioid dependence, uncomplicated
CPT/HCPCS: 80053; 80061; 83036

== ENCOUNTER 2025-06-03 11:30 | Outpatient (RCR) | payer MEDICARE, SELFPAY ==
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
--- NOTE | 2025-05-06 10:39 | PT.OTN ---
Current Diagnoses Other abnormalities of gait and mobility (05/06/25) Unspecified abnormalities of gait and mobility (05/06/25) Repeated falls (05/06/25) Physical Therapy Treatment Note PT OP: Balance, Vestibular, Neuro Start: 04/29/25 14:34 Freq: Status: Active Protocol: Document 05/06/25 08:56 JVD (Rec: 05/06/25 09:02 JVD [id number]) Out-Patient Physical Therapy Visit Information Visit Information Visit Type Treatment Note Visit Start Time 09:45 Visit Stop Time 10:25 Visit Number 2 Number of HAIR SPECIALIST Visits 0 Progress Note Due 05/31/25 Precautions Precautions Fall risk L rib fracture A-fib, pacemaker OP-PT Subjective Patient Comments Patient Comments Pt reports he is feeling dizzy today but he feels dizzy all of the time. It gets worse when he is moving around or lying on his L side. Pt reports his balance feels worse when he is going down stairs compared to up. He also feels more dizzy when going down stairs. Therapeutic Exercises Supine Exercises bridge Supine Exercise Name 1. w band 2. SKFO 3. straight leg on GB Side bilateral Resistance lvl 3 Reps/Minutes 10x2 each Comments pued to maintain max hip height during SKFO Therapeutic Activity Therapeutic Activity step ups/downs Name fwd, lateral, down Reps/Minutes 10ea x3 Comments knee to chest to incorporate balance going up squats Reps/Minutes 10x3 Comments cued for slow controlled decent and fast concentric movements Neuro Re-Education Treatment Balance Activities hurdles Details fwd and lateral Reps/Duration 5 laps in // bars tandem walking\ Details w head turns and head nods Reps/Duration 4 laps ea in // bars SLS\ Surface firm Reps/Duration [id number] Comments cued to use very light finger touch and transition away from UE support as able tandem stance w weight shift Details 1. weight shift, 2. head turn, 3. head nod Surface firm Reps/Duration [id number] Comments cued to maintain visual fixation and weight shift fwd/ bkwd w/ control Physical Therapy Assessment Goals sit<>stand Impairment sit<>stand Short Term Goal (STG Pt will improve 5x sit<>stand time to <12 seconds, ) indicating improved strength and stability STG Duration 4 weeks floor<>stand transfers Impairment Unable to stand up from the ground Rn Labor Delivery Goal (LTG) Pt will demonstrate ability to safely transition floor< >stand w/o assistance LTG Duration 6 weeks Gait Impairment WBOS and shortened stride length when ambulating Rn Labor Delivery Goal (LTG) Pt will demonstrate normalized stride length and YOLANDA when ambulating in order to better adapt to environment LTG Duration 12 weeks Balance Impairment balance deficits w SLS Rn Labor Delivery Goal (LTG) Pt will be able to maintain SLS for 15sec w/o UE support LTG Duration 6 weeks Strength Impairment BLE strength deficits Rn Labor Delivery Goal (LTG) Pt will increase BLE strength by 1/5 in order to improve performance and safety w daily activities LTG Duration 8 weeks HEP Short Term Goal (STG Pt will demonstrate independence w HEP w/i 1 week ) STG Duration 1 week Assessment Summary Assessment Pt presents to PT today w 3/10 dizziness. He reports his rib has been hurting when doing the balance exercises as he has to reach out to touch the croft sometimes. Pt did well w increased challenge during balance tasks. Pt requires SBA during dynamic balance exercises. He reported feeling a reduction in dizziness following balance exercises. Physical Therapy Plan Frequency and Duration Frequency of 2x/Week Treatment Duration of 12 treatment (weeks) Plan of Care Start 05/01/25 Date Plan of Care End 07/30/25 Date Next Visit Focus/Plan Next Note Type Treatment Note Next Visit Plan floor<>stand transfers lunges dynamic balance: head turns, stepping up/over, carrying
--- NOTE | 2025-05-09 16:16 | PT.OTN ---
Current Diagnoses Other abnormalities of gait and mobility (05/09/25) Unspecified abnormalities of gait and mobility (05/09/25) Repeated falls (05/09/25) Physical Therapy Treatment Note PT OP: Balance, Vestibular, Neuro Start: 04/29/25 14:34 Freq: Status: Active Protocol: Document 05/09/25 15:15 DCW (Rec: 05/09/25 16:14 DCW [id number]) Out-Patient Physical Therapy Visit Information Visit Information Visit Type Treatment Note Visit Start Time 15:15 Visit Stop Time 16:00 Visit Number 3 Number of ADVERTISING COLUMNIST Visits 0 Progress Note Due 05/31/25 Evaluation Information Evaluation Date 05/01/25 Precautions Precautions Fall risk L rib fracture A-fib, pacemaker Neuro Re-Education Treatment Balance Activities Foam Details Head turns, EO/EC hurdles Details fwd and lateral Reps/Duration 5 laps in // bars tandem walking\ Details Tandem ambulation Reps/Duration 2 laps ea in // bars Comments Forward and backward Vestibular Rehabilitation Corrective Saccades Details Eyes, then head Distance From Target Arm's length Speed As tolerated Position Sitting X2 Viewing Details Head and target in opposite direction Distance From Target Arm's length Speed As tolerated Position Sitting X1 Viewing Details Static target /c head turns Distance From Target Arm's length Speed As tolerated Position Sitting VOR Retraining Details Target and head moving together Distance From Target Arm's length Speed As tolerated Position Sitting Physical Therapy Assessment Impairments Impairments Balance,Gait,Strength Goals sit<>stand Impairment sit<>stand Short Term Goal (STG Pt will improve 5x sit<>stand time to <12 seconds, ) indicating improved strength and stability STG Duration 4 weeks floor<>stand transfers Impairment Unable to stand up from the ground Showroom Executive Director Goal (LTG) Pt will demonstrate ability to safely transition floor< >stand w/o assistance LTG Duration 6 weeks Gait Impairment WBOS and shortened stride length when ambulating Residential Goal (LTG) Pt will demonstrate normalized stride length and YOLANDA when ambulating in order to better adapt to environment LTG Duration 12 weeks Balance Impairment balance deficits w SLS Showroom Executive Director Goal (LTG) Pt will be able to maintain SLS for 15sec w/o UE support LTG Duration 6 weeks Strength Impairment BLE strength deficits Residential Goal (LTG) Pt will increase BLE strength by 1/5 in order to improve performance and safety w daily activities LTG Duration 8 weeks HEP Short Term Goal (STG Pt will demonstrate independence w HEP w/i 1 week ) STG Duration 1 week Assessment Summary Assessment Pt exhibits good response to new oculomotor/vestibular adaptation exercises, noted they would be easy enough to add to his HEP. Discussed importance of performing properly and not flaring up symptoms excessively. Physical Therapy Plan Frequency and Duration Frequency of 2x/Week Treatment Duration of 12 treatment (weeks) Plan of Care Start 05/01/25 Date Plan of Care End 07/30/25 Date Therapeutic Interventions Therapeutic Balance Training,Gait Training,Home Exercise Program, Interventions Joint Mobilizations,Manual Therapy,Neuromuscular Re- education,Patient/Caregiver Education,Self-Care/Home Management,Soft Tissue Mobilization,Taping,Therapeutic Activities,Therapeutic Exercises Modalities Cold Pack/Ice Massage,Electric Stimulation,Hot Packs, Ultrasound Next Visit Focus/Plan Next Note Type Treatment Note Next Visit Plan floor<>stand transfers lunges dynamic balance: head turns, stepping up/over, carrying
--- NOTE | 2025-05-14 12:30 | PT.OTN ---
Current Diagnoses Other abnormalities of gait and mobility (05/14/25) Unspecified abnormalities of gait and mobility (05/14/25) Repeated falls (05/14/25) Physical Therapy Treatment Note PT OP: Balance, Vestibular, Neuro Start: 04/29/25 14:34 Freq: Status: Active Protocol: Document 05/14/25 09:46 JVD (Rec: 05/14/25 12:30 JVD [id number]) Out-Patient Physical Therapy Visit Information Visit Information Visit Type Treatment Note Visit Start Time 10:46 Visit Stop Time 11:30 Visit Number 4 Number of CONFECTIONERY MAKER Visits 0 Progress Note Due 05/31/25 Precautions Precautions Fall risk L rib fracture A-fib, pacemaker OP-PT Subjective Patient Comments Patient Comments Pt reports he has been doing really well; however, a tree fell over his road last night and he had to move it at midnight which really aggravated his ribs on the L. Therapeutic Exercises Supine Exercises sh flex w cane Supine Exercise Name supine and sitting Side left Equipment Used dowel Reps/Minutes 10sec x10 Comments shoulder mobility to assist w ROM due to rib fracture bridge Supine Exercise Name 1. w band 2. SKFO 3. bridge w march Side bilateral Resistance lvl 3 Reps/Minutes 10x2 each Comments pued to maintain max hip height during SKFO Therapeutic Activity Therapeutic Activity step ups/downs Name fwd, lateral, down Reps/Minutes 10ea x3 Comments knee to chest to incorporate balance going up squats Name tapping bench Reps/Minutes 10x3 Comments cued for slow controlled decent and fast concentric movements Neuro Re-Education Treatment Balance Activities Foam Details Head turns, EO/EC hurdles Details fwd and lateral Reps/Duration 5 laps in // bars tandem walking\ Details Tandem ambulation Reps/Duration 2 laps ea in // bars Comments Forward and backward SLS\ Surface firm Reps/Duration [id number] Comments cued to use very light finger touch and transition away from UE support as able tandem stance w weight shift Details 1. weight shift, 2. head turn, 3. head nod Surface firm Reps/Duration [id number] Comments cued to maintain visual fixation and weight shift fwd/ bkwd w/ control Physical Therapy Assessment Goals sit<>stand Impairment sit<>stand Short Term Goal (STG Pt will improve 5x sit<>stand time to <12 seconds, ) indicating improved strength and stability STG Duration 4 weeks floor<>stand transfers Impairment Unable to stand up from the ground Center Machine Set Up Operator Goal (LTG) Pt will demonstrate ability to safely transition floor< >stand w/o assistance LTG Duration 6 weeks Gait Impairment WBOS and shortened stride length when ambulating Center Machine Set Up Operator Goal (LTG) Pt will demonstrate normalized stride length and YOLANDA when ambulating in order to better adapt to environment LTG Duration 12 weeks Balance Impairment balance deficits w SLS Nursing Home Goal (LTG) Pt will be able to maintain SLS for 15sec w/o UE support LTG Duration 6 weeks Strength Impairment BLE strength deficits Center Machine Set Up Operator Goal (LTG) Pt will increase BLE strength by 1/5 in order to improve performance and safety w daily activities LTG Duration 8 weeks HEP Short Term Goal (STG Pt will demonstrate independence w HEP w/i 1 week ) STG Duration 1 week Assessment Summary Assessment Pt presents to PT today w increase L rib pain after moving a tree from his yard. Pt is unable to actively lift L arm due to pain in ribs. Pt had good tolerance to AAROM exercises and was able to actively elevate arm following exercises. Pt demonstrates difficulty w dynamic balance when in NBOS and c/o intermittent dizziness/lightheadedness throughout session. Pt is allotted rest breaks to allow symptoms to subside. Physical Therapy Plan Frequency and Duration Frequency of 2x/Week Treatment Duration of 12 treatment (weeks) Plan of Care Start 05/01/25 Date Plan of Care End 07/30/25 Date Next Visit Focus/Plan Next Note Type Treatment Note Next Visit Plan floor<>stand transfers lunges dynamic balance: head turns, stepping up/over, carrying
--- NOTE | 2025-05-27 10:36 | PT.OTN ---
Current Diagnoses Other abnormalities of gait and mobility (05/27/25) Unspecified abnormalities of gait and mobility (05/27/25) Repeated falls (05/27/25) Physical Therapy Treatment Note PT OP: Balance, Vestibular, Neuro Start: 04/29/25 14:34 Freq: Status: Active Protocol: Document 05/27/25 07:26 JVD (Rec: 05/27/25 10:36 JVD [id number]) Out-Patient Physical Therapy Visit Information Visit Information Visit Type Treatment Note Visit Start Time 09:05 Visit Stop Time 09:45 Visit Number 5 Number of STRUCTURAL STEEL IRONWORKER Visits 0 Progress Note Due 05/31/25 Precautions Precautions Fall risk L rib fracture A-fib, pacemaker OP-PT Subjective Patient Comments Patient Comments Pt reports he has been feeling better lately; he states his rib only hurts a little bit with certain tasks. Pt states he feels his dizziness has improved some. Pt states he has difficulty getting up from the ground. He has avoided getting down on the ground since his fall. Therapeutic Exercises Supine Exercises sh flex w cane Supine Exercise Name supine and sitting Side left Equipment Used dowel Reps/Minutes 10sec x10 Comments shoulder mobility to assist w ROM due to rib fracture bridge Supine Exercise Name on PB: 1. straight leg 2. hamstring curl 3. straight leg march Reps/Minutes 10 ea Comments cued to keep hips up Therapeutic Activity Therapeutic Activity floor<>stand Name transfers Reps/Minutes 4 Comments practiced split squat technique but pt was unable to stand up w/o pulling on HR. Pt was able to successfully stand up using downward dog technique squats Name split squats Reps/Minutes 10ea Comments cued to go as low as possible to work towards being able to get up from the ground Physical Therapy Assessment Goals sit<>stand Impairment sit<>stand Short Term Goal (STG Pt will improve 5x sit<>stand time to <12 seconds, ) indicating improved strength and stability STG Duration 4 weeks floor<>stand transfers Impairment Unable to stand up from the ground Snf Goal (LTG) Pt will demonstrate ability to safely transition floor< >stand w/o assistance LTG Duration 6 weeks Gait Impairment WBOS and shortened stride length when ambulating Snf Goal (LTG) Pt will demonstrate normalized stride length and YOLANDA when ambulating in order to better adapt to environment LTG Duration 12 weeks Balance Impairment balance deficits w SLS Snf Goal (LTG) Pt will be able to maintain SLS for 15sec w/o UE support LTG Duration 6 weeks Strength Impairment BLE strength deficits Wastewater Manager Goal (LTG) Pt will increase BLE strength by 1/5 in order to improve performance and safety w daily activities LTG Duration 8 weeks HEP Short Term Goal (STG Pt will demonstrate independence w HEP w/i 1 week ) STG Duration 1 week Assessment Summary Assessment Pt presents to PT today w improved rib pain and reduction in dizziness/lightheaded spells. Pt requested to work on floor<>stand transfers today, since his ribs are finally feeling better. He was unable to stand up from the ground using a split stance technique but was able to perform the transition using the downward down method. He became fatigued after 2 attempts and required a couple minutes of rest in order to be able to get up again w/o assistance. Physical Therapy Plan Frequency and Duration Frequency of 2x/Week Treatment Duration of 12 treatment (weeks) Plan of Care Start 05/01/25 Date Plan of Care End 07/30/25 Date Next Visit Focus/Plan Next Note Type Treatment Note Next Visit Plan floor<>stand transfers lunges dynamic balance: head turns, stepping up/over, carrying
--- NOTE | 2025-06-03 14:13 | PT.OPDS ---
Current Diagnoses Other abnormalities of gait and mobility (06/03/25) Unspecified abnormalities of gait and mobility (06/03/25) Repeated falls (06/03/25) Visit Care Team Role Provider Type Saeed Shotr MD Attending Provider Physician Family Provider Primary Care Provider Referring Provider Specialty: Internal Medicine Address: [address] [place] [address], [address], [address] Email: [email or web address] Visit Number Visit Number 6 Discharge Summary PT OP: Balance, Vestibular, Neuro Start: 04/29/25 14:34 Freq: Status: Active Protocol: Document 06/03/25 11:29 JVD (Rec: 06/03/25 14:12 JVD [id number]) Out-Patient Physical Therapy Visit Information Visit Information Visit Type Discharge Summary Visit Start Time 11:30 Visit Stop Time 12:12 Visit Number 6 Number of ACCOUNT SPECIALIST Visits 0 Precautions Precautions Fall risk L rib fracture A-fib, pacemaker OP-PT Subjective Patient Comments Patient Comments Pt reports he is doing pretty well. He feels his dizziness getting better; he thinks the eye exercises have been really helpful. Pt states he feels really good and feels he has enough exercises at home that he can continue self-management Balance Tests Single Limb Standing Single Limb- Right 14 Single Limb- Left 16 Tandem Tandem Standing 30 Functional Tests Five Times Sit to Stand Test Score 13 Comments pt reports it feels like his head is getting ahead of himself Cardio Equipment Recumbent Elliptical (NuStep) Duration (Minutes) 8 Resistance 6 Seat Position 13 Therapeutic Activity Therapeutic Activity step ups/downs Name fwd, lateral, down Reps/Minutes 10ea x3 Comments knee to chest to incorporate balance going up squats Name split squats Reps/Minutes 10ea Comments cued to go as low as possible to work towards being able to get up from the ground Gait Training Gait Activity NBOS Description increased stride length, NBOS Surface firm Neuro Re-Education Treatment Balance Activities tandem walking\ Details Tandem ambulation Reps/Duration 2 laps ea in // bars Comments Forward and backward SLS\ Surface firm Reps/Duration [id number] Comments cued to use very light finger touch and transition away from UE support as able tandem stance w weight shift Details 1. weight shift, 2. head turn, 3. head nod Surface firm Reps/Duration [id number] Comments cued to maintain visual fixation and weight shift fwd/ bkwd w/ control Physical Therapy Assessment Goals sit<>stand Impairment sit<>stand Short Term Goal (STG Pt will improve 5x sit<>stand time to <12 seconds, ) indicating improved strength and stability STG Duration 4 weeks Contact Lens Inspector Goal (LTG) Progress 06/03: 13sec floor<>stand transfers Impairment Unable to stand up from the ground Penitentiary Goal (LTG) Pt will demonstrate ability to safely transition floor< >stand w/o assistance Progress: 06/03: goal met pt is able to transition floor<>stand w/o assistance LTG Duration 6 weeks Gait Impairment WBOS and shortened stride length when ambulating Contact Lens Inspector Goal (LTG) Pt will demonstrate normalized stride length and YOLANDA when ambulating in order to better adapt to environment Progress: 06/03: pt continues to ambulate w WBOS and will drag his heels - pt is able to correct foot clearance w verbal cuing LTG Duration 12 weeks Balance Impairment balance deficits w SLS Contact Lens Inspector Goal (LTG) Pt will be able to maintain SLS for 15sec w/o UE support LTG Duration 6 weeks Strength Impairment BLE strength deficits [facility]itentiary Goal (LTG) Pt will increase BLE strength by 1/5 in order to improve performance and safety w daily activities LTG Duration 8 weeks HEP Short Term Goal (STG Pt will demonstrate independence w HEP w/i 1 week ) STG Duration 1 week Contact Lens Inspector Goal (LTG) Progress: 06/03: Goal met: pt has an exercise program he does daily Assessment Summary Assessment Pt has made good progress towards his goals. He demonstrates improved strength and stability; he is able to transition floor<>stand w/o needing external support. Pt states he feels he has a good exercise program at home and ready to discharge and continue self-management w HEP. Pt demonstrates appropriate execution of exercises; progressions were shown to patient so he can continue to progress at home. Pt demonstrates readiness for DC and self-management w HEP at this time. Physical Therapy Plan Frequency and Duration Frequency of 2x/Week Treatment Duration of 12 treatment (weeks) Plan of Care Start 05/01/25 Date Plan of Care End 07/30/25 Date Next Visit Focus/Plan Next Note Type Treatment Note Next Visit Plan floor<>stand transfers lunges dynamic balance: head turns, stepping up/over, carrying
== END 2025-06-04 10:50 | disposition home or self-care (01) ==
LOC: PHYS 11:30
PROVIDERS: Family Provider Internal Medicine; PCP Internal Medicine; Referring Provider Internal Medicine; Visit Provider Internal Medicine
DX: R29.6 Repeated falls (principal); R26.9 Unspecified abnormalities of gait and mobility; R26.89 Other abnormalities of gait and mobility
CPT/HCPCS: 97110; 97112; 97162; 97530; 97535

== ENCOUNTER → 2025-06-10 10:14 | Outpatient (CLI) | payer MEDICARE, SELFPAY ==
[2025-06-10 10:54] LABS: Hemoglobin A1C% w Est Avg Glu 7.3 % (4.0-6.0)
[2025-06-10 11:32] LABS: Alanine Aminotransferase 41 IU/L (<50); Albumin 4.5 g/dL (3.5-5.0); Albumin Globulin Ratio 1.7 (1.0-2.8); Alkaline Phosphatase 56 U/L (38-126); Blood Urea Nitrogen 11 mg/dL (9-20); Calcium 9.4 mg/dL (8.4-10.2); Carbon Dioxide 27 mmol/L (22-32); Chloride 99 mmol/L (98-107); Estimated Glomerular Filt Rate > 60 mL/min (>60); Globulin 2.6 g/dL (1.7-4.1); Glucose 182 mg/dL (70-99); HEMOLYSIS 20 (0-50); Potassium 4.2 mmol/L (3.4-5.1); Sodium 135 mmol/L (137-145); Total Protein 7.1 g/dL (6.3-8.2)
== END ==
PROVIDERS: Family Provider Internal Medicine; PCP Internal Medicine; Referring Provider Internal Medicine; Visit Provider Internal Medicine
DX: E11.9 Type 2 diabetes mellitus without complications (principal); I10 Essential (primary) hypertension
CPT/HCPCS: 36415; 80053; 83036